=== PATIENT | male | born 1950 | race Caucasian/White ===

== ENCOUNTER 2017-12-12 17:56 | Inpatient (IN) | payer MEDICARE ==
[~2017-12-12] VITALS: Ht 182.9 cm; Wt 120.6 kg
[~2017-12-12 17:56] MED LIST: PERC5TAB12 PO
[2017-12-12 18:04] VITALS: BP 135/69; PULSE 69; RESP 16; TEMP 98; O2SAT 90
--- NOTE | 2017-12-12 18:24 | PD ---
HPI Chief Complaint: General Weakness Time Seen by Provider: 18:06 Travel History International Travel<30 days: No Contact w/Intl Traveler<30days: No Traveled to known affect area: No History of Present Illness HPI 67yo M with PMH of DM, CAD, right BKA, left transmetatarsal amputation, spinal osteomyelitis here with c/o progressively worsening weakness in all extremities but more in bilateral lower extremity. Pt said he normally is able to transfer himself but get even get out of bed for 3-4 days. Pt lives with his ex and takes care of himself. He usually is able to transfer himself to wheelchair and shower by himself and take a few steps with his prosthetic. Denies any fever, chest pain, sob, n/v, abdominal pain, focal numbness that is new. Denies any back pain or fall. PFSH Past Medical History Hx Anticoagulant Therapy: Yes (STOPPED 6 WEEKS AGO) Diabetes: Yes Immunizations Current: Yes Social History Alcohol Use: No Tobacco Use: No Substance Use: No Allergies-Medications (Allergen,Severity, Reaction): Coded Allergies: No Known Allergies (Unverified Adverse Reaction, Unknown, 12/12/17) Reported Meds & Prescriptions Reported Meds & Active Scripts Active Reported Hydrochlorothiazide 25 Mg Tab 25 Mg PO DAILY Lasix (Furosemide) 20 Mg Tab 20 Mg PO DAILY Tamsulosin (Tamsulosin HCl) 0.4 Mg Cap 0.4 Mg HS Protonix (Pantoprazole Sodium) 40 Mg Tab 40 Mg PO DAILY Metoprolol Tartrate 25 Mg Tab 25 Mg PO BID Metformin (Metformin HCl) 1,000 Mg Tab 1,000 Mg PO BIDPC Crestor (Rosuvastatin Calcium) 40 Mg Tab 40 Mg PO DAILY Glipizide 10 Mg Tab 10 Mg PO BIDAC Take 30 minutes before a meal Gabapentin 300 Mg Cap 300 Mg PO BID Ergocalciferol 50,000 Unit Cap 50,000 Units PO Q7D Creon (Pancrelipase) 3,000-9,500-15,000 Units Cap 1 Cap PO BID Aspirin Children's (Aspirin) 81 Mg Chew 81 Mg CHEW DAILY Amlodipine (Amlodipine Besylate) 10 Mg Tab 10 Mg PO DAILY Review of Systems Except as stated in HPI: all other systems reviewed are Neg Physical Exam Narrative GENERAL: 67yo M not in distress. SKIN: Focused skin assessment warm/dry. HEAD: Atraumatic. Normocephalic. EYES: Pupils equal and round. No scleral icterus. No injection or drainage. ENT: No nasal bleeding or discharge. Mucous membranes pink and moist. NECK: Trachea midline. No JVD. CARDIOVASCULAR: Regular rate and rhythm. No murmur appreciated. RESPIRATORY: No accessory muscle use. Clear to auscultation. Breath sounds equal bilaterally. GASTROINTESTINAL: Abdomen soft, non-tender, nondistended. Hepatic and splenic margins not palpable. BACK: No midline thoracic or lumbar ttp. No erythema or mass. MUSCULOSKELETAL: LLE: +Transmetatarsal amputation. Multiple nonhealing ulcers in medial ankle. RLE: +BKA. No erythema. NEUROLOGICAL: Awake and alert. No obvious cranial nerve deficits. Motor grossly within normal limits in all extremities. Sensation intact. Normal speech. PSYCHIATRIC: Appropriate mood and affect; insight and judgment normal. Data Data Last Documented VS Vital Signs Date Time Temp Pulse Resp B/P (MAP) Pulse Ox O2 Delivery O2 Flow Rate FiO2 12/12/17 19:21 68 16 139/66 (90) 94 Room Air 12/12/17 18:04 98.0 Orders Orders Complete Blood Count With Diff (12/12/17 18:21) Basic Metabolic Panel (Bmp) (12/12/17 18:21) Magnesium (Mg) (12/12/17 18:21) Urinalysis - C+S If Indicated (12/12/17 18:21) Urine Culture (12/12/17 19:21) Ceftriaxone Inj (Rocephin Inj) (12/12/17 20:00) Sodium Chlor 0.9% 1000 Ml Inj (Ns 1000 M (12/12/17 20:00) Admit Order (Ed Use Only) (12/12/17 20:31) Bedside Glucose OLVIN.CSUGAR (12/12/17 20:29) Blood Glucose Goal (Criteria) (12/12/17 20:29) Hypoglycemia 70 Mg/Dl Or < (12/12/17 20:29) Notify Dr: Other (12/12/17 20:29) Dextrose 50% In Brianna (Vial) Inj (D50w (Vi (12/12/17 20:30) Glucagon Inj (Glucagon Inj) (12/12/17 20:30) Insulin Aspart Supplemtl Scale (Novolog (12/12/17 21:00) Ceftriaxone Inj (Rocephin Inj) (12/13/17 21:00) Place In Observation (12/12/17 ) Vital Signs (Adult) Q4H (12/12/17 20:29) Activity Oob With Assistance (12/12/17 20:29) Intake + Output OLVIN.QSHIFT (12/12/17 20:29) Diet 1800 Ada Cons Carb (12/13/17 Breakfast) Sodium Chlor 0.9% 1000 Ml Inj (Ns 1000 M (12/12/17 20:29) Sodium Chloride 0.9% Flush (Ns Flush) (12/12/17 20:30) Sodium Chloride 0.9% Flush (Ns Flush) (12/12/17 21:00) Ondansetron Inj (Zofran Inj) (12/12/17 20:30) Comprehensive Metabolic Panel (12/13/17 06:00) Complete Blood Count With Diff (12/13/17 06:00) Case Management Consult (12/12/17 20:29) Heparin Inj (Heparin Inj) (12/13/17 09:00) Acetaminophen (Tylenol) (12/12/17 20:30) Acetamin-Hydrocod 325-5 Mg ([place] 5-325 (12/12/17 20:30) Acetamin-Hydrocod 325-10 Mg ([place] 10-32 (12/12/17 20:30) Docusate Sodium-Senna (Yen-Colace) (12/12/17 21:00) Magnesium Hydroxide Liq (Milk Of Magnesi (12/12/17 20:30) Sennosides (Senokot) (12/12/17 20:30) Bisacodyl Supp (Dulcolax Supp) (12/12/17 20:30) Lactulose Liq (Lactulose Liq) (12/12/17 20:30) Amlodipine (Norvasc) (12/13/17 09:00) Aspirin Chew (Aspirin Chew) (12/13/17 09:00) Furosemide (Lasix) (12/13/17 09:00) Gabapentin (Neurontin) (12/12/17 21:00) Glipizide (Glucotrol) (12/13/17 07:00) Metoprolol Tartrate (Lopressor) (12/12/17 21:00) Pantoprazole (Protonix) (12/13/17 09:00) Tamsulosin (Flomax) (12/12/17 21:00) Atorvastatin (Lipitor) (12/13/17 09:00) Labs Laboratory Tests Test 12/12/17 19:12 12/12/17 19:21 White Blood Count 11.9 TH/MM3 Red Blood Count 4.06 MIL/MM3 Hemoglobin 11.7 GM/DL Hematocrit 35.2 % Mean Corpuscular Volume 86.7 FL Mean Corpuscular Hemoglobin 28.8 PG Mean Corpuscular Hemoglobin Concent 33.2 % Red Cell Distribution Width 14.0 % Platelet Count 239 TH/MM3 Mean Platelet Volume 7.5 FL Neutrophils (%) (Auto) 72.5 % Lymphocytes (%) (Auto) 15.5 % Monocytes (%) (Auto) 8.6 % Eosinophils (%) (Auto) 2.8 % Basophils (%) (Auto) 0.6 % Neutrophils # (Auto) 8.7 TH/MM3 Lymphocytes # (Auto) 1.8 TH/MM3 Monocytes # (Auto) 1.0 TH/MM3 Eosinophils # (Auto) 0.3 TH/MM3 Basophils # (Auto) 0.1 TH/MM3 CBC Comment DIFF FINAL Differential Comment Blood Urea Nitrogen 57 MG/DL Creatinine 2.60 MG/DL Random Glucose 168 MG/DL Calcium Level 9.3 MG/DL Magnesium Level 2.2 MG/DL Sodium Level 136 MEQ/L Potassium Level 3.5 MEQ/L Chloride Level 98 MEQ/L Carbon Dioxide Level 27.5 MEQ/L Anion Gap 11 MEQ/L Estimat Glomerular Filtration Rate 25 ML/MIN Urine Collection Type CLEAN CATCH Urine Color YELLOW Urine Turbidity CLOUDY Urine pH 5.5 Urine Specific [place] 1.025 Urine Protein 100 mg/dL Urine Glucose (UA) 100 mg/dL Urine Ketones NEG mg/dL Urine Occult Blood LARGE Urine Nitrite NEG Urine Bilirubin NEG Urine Urobilinogen 0.2 MG/DL Urine Leukocyte Esterase NEG Urine RBC 0-3 /hpf Urine WBC 9-14 /hpf Urine Squamous Epithelial Cells 0-5 /hpf Urine Amorphous Sediment SMALL Urine Bacteria MANY /hpf Urine Hyaline Casts 3-5 /lpf Urine Fine Granular Casts 0-2 /lpf Urine Mucus OCC /lpf Microscopic Urinalysis Comment CULTURE INDICATED MDM Medical Decision Making Medical Screen Exam Complete: Yes Emergency Medical Condition: Yes Differential Diagnosis Infection vs. failure to thrive vs. dehydration vs. UTI Narrative Course 67yo M with c/o inability to transfer himself to wheelchair for the last 3-4 days because of progressive weakness in bilateral lower extremity. Pt able to lift bilateral lower extremity on exam but said he cant get out of bed. Labs reviewed, WBC 11.9. BUN/creatinine elevated at 57/2.6. Last BUN/creatinine available was 29/1.55 in 2016. Pt said he was told that he needs to see a kidney specialist but never did. Glucose 168. UA showed large blood. WBC 9/ 14. Many bacteria. +Hyaline casts. Pt given ceftriaxone and NS IVF for UTI and dehydration. Pt is unable to take care of himself. Discussed with Dr. Mejias and accepted to her service. Diagnosis Primary Impression: UTI (urinary tract infection) Qualified Codes: N39.0 - Urinary tract infection, site not specified; R31.9 - Hematuria, unspecified Additional Impression: Acute on chronic kidney failure Admitting Information Admitting Physician Requests: Observation Erika Kennedy DO Dec 12, 2017 18:24
[2017-12-12] MEDS ORDERED: AMLO10TA2 PO (18:35)
[2017-12-12] MEDS ORDERED: METF1000 PO (18:35)
[2017-12-12] MEDS ORDERED: FURO1TAB62 PO (18:35)
[2017-12-12] MEDS ORDERED: PROT40TA PO (18:35)
[2017-12-12] MEDS ORDERED: GLIP10TA6 PO (18:35)
[2017-12-12] MEDS ORDERED: METO25TA3 PO (18:35)
[2017-12-12] MEDS ORDERED: HYDR25TA5 PO (18:35)
[2017-12-12] MEDS ORDERED: ASPI81CH7 CHEW (18:35)
[2017-12-12] MEDS ORDERED: VITA500012 PO (18:35)
[2017-12-12] MEDS ORDERED: TAMS0.4C4 (18:35)
[2017-12-12] MEDS ORDERED: CREO3000 PO (18:35)
[2017-12-12] MEDS ORDERED: GABA300C5 PO (18:35)
[2017-12-12] MEDS ORDERED: ROSU40 PO (18:35)
[2017-12-12 19:21] VITALS: BP 139/66; PULSE 68; RESP 16; O2SAT 94
[2017-12-12 19:27] LABS: BILIRUBIN, URINE NEG (NEG); BLOOD, URINE LARGE (NEG); GLUCOSE,URINE 100 mg/dL (NEG); KETONE, URINE NEG (NEG); NITRITE,URINE NEG (NEG); PH, URINE 5.5 (5.0-8.5); URINE COLOR YELLOW (YELLW/STRAW); URINE LEUKOCYTE ESTERASE NEG (NEG)
[2017-12-12 19:28] LABS: AUTOMATED NEUTROPHIL # 8.7 TH/MM3 (1.8-7.7); BASOPHIL # 0.1 TH/MM3 (0-0.2); BASOPHIL % 0.6 % (0.0-2.0); EOSINOPHIL # 0.3 TH/MM3 (0-0.4); EOSINOPHIL % 2.8 % (0.0-4.0); HEMATOCRIT 35.2 % (39.0-51.0); HEMOGLOBIN 11.7 GM/DL (13.0-17.0); LYMPH % 15.5 % (9.0-44.0); LYMPHOCYTE # 1.8 TH/MM3 (1.0-4.8); MEAN CELL VOLUME 86.7 FL (80.0-100.0); MEAN CORPUSCULAR HEMOGLOBIN 28.8 PG (27.0-34.0); MEAN CORPUSCULAR HGB CONC 33.2 % (32.0-36.0); MEAN PLATELET VOLUME 7.5 FL (7.0-11.0); MONO % 8.6 % (0.0-8.0); NEUT % 72.5 % (16.0-70.0); PLATELET COUNT 239 TH/MM3 (150-450); RED BLOOD COUNT 4.06 MIL/MM3 (4.50-5.90); WHITE BLOOD COUNT 11.9 TH/MM3 (4.0-11.0)
[2017-12-12 19:41] LABS: BACTERIA, URINE MANY /hpf; SQUAMOUS EPITHELIAL CELL URINE 0-5 /hpf (0-5)
[2017-12-12 19:42] LABS: MUCUS URINE OCC /lpf (OCC)
[2017-12-12 19:42] LABS: BICARBONATE 27.5 MEQ/L (21.0-32.0); CALCIUM 9.3 MG/DL (8.5-10.1); MAGNESIUM 2.2 MG/DL (1.5-2.5)
[2017-12-12 19:43] LABS: AMORPHOUS SEDIMENT, URINE SMALL; RBC, URINE 0-3 /hpf (0-3)
[2017-12-12 19:46] LABS: CREATININE 2.6 MG/DL (0.60-1.30)
[2017-12-12] MEDS ORDERED: SODIUM CHLOR 0.9% 1000 ML INJ 1,000 ML IV ONE (20:00)
[2017-12-12] MEDS ORDERED: cefTRIAXone INJ 1,000 MG in SODIUM CHLORIDE 0.9% INJ 100 ML IV ONE (20:00)
[2017-12-12] MEDS ORDERED: SODIUM CHLOR 0.9% 1000 ML INJ 1,000 ML IV SCH (20:29)
[2017-12-12] MEDS ORDERED: BISACODYL 10 MG SUPP RECTAL PRN (20:30)
[2017-12-12] MEDS ORDERED: ACETAMINOPHEN/HYDROcodone 325 MG/10 MG TAB PO PRN (20:30)
[2017-12-12] MEDS ORDERED: ONDANSETRON HCL 4 MG/2 ML VIAL IVP PRN (20:30)
[2017-12-12] MEDS ORDERED: LACTULOSE SYRUP 20 GM/30 ML CUP PO PRN (20:30)
[2017-12-12] MEDS ORDERED: GLUCAGON 1 MG/ML VIAL OTHER PRN (20:30)
[2017-12-12] MEDS ORDERED: ACETAMINOPHEN/HYDROcodone 325 MG/5 MG TAB PO PRN (20:30)
[2017-12-12] MEDS ORDERED: SODIUM CHLORIDE 0.9% FLUSH 10 ML FLUSH IV FLUSH PRN (20:30)
[2017-12-12] MEDS ORDERED: MAGNESIUM HYDROXIDE SUSP 30 ML CUP PO PRN (20:30)
[2017-12-12] MEDS ORDERED: DEXTROSE 50% IN WATER 50 ML VIAL(D50) IV PUSH PRN (20:30)
[2017-12-12] MEDS ORDERED: SENNOSIDES 8.6 MG TAB PO PRN (20:30)
[2017-12-12] MEDS: INSULIN ASPART SUPPLEMENTAL SCALE SQ SCH (21:00)
[2017-12-12 21:25] VITALS: BP 107/64
[2017-12-12 22:14] VITALS: BP 148/78; PULSE 69; RESP 18; TEMP 97.6; O2SAT 94
[2017-12-12] MEDS: SODIUM CHLORIDE 0.9% FLUSH 10 ML FLUSH IV FLUSH SCH (22:16)
[2017-12-12] MEDS: METOPROLOL TARTRATE 25 MG TAB PO SCH (22:16)
[2017-12-12] MEDS: DOCUSATE SODIUM 50 MG/SENNA 8.6 MG TAB PO SCH (22:16)
[2017-12-12] MEDS: GABAPENTIN 300 MG CAP PO SCH (22:16)
[2017-12-12] MEDS: TAMSULOSIN HCL 0.4 MG CAP PO SCH (22:22)
[2017-12-13 04:39] VITALS: O2SAT 97
[2017-12-13 06:15] LABS: AUTOMATED NEUTROPHIL # 8.1 TH/MM3 (1.8-7.7); BASOPHIL % 0.4 % (0.0-2.0); EOSINOPHIL # 0.4 TH/MM3 (0-0.4); EOSINOPHIL % 3.3 % (0.0-4.0); HEMATOCRIT 32.5 % (39.0-51.0); HEMOGLOBIN 11.2 GM/DL (13.0-17.0); LYMPH % 19.5 % (9.0-44.0); LYMPHOCYTE # 2.3 TH/MM3 (1.0-4.8); MEAN CELL VOLUME 86.6 FL (80.0-100.0); MEAN CORPUSCULAR HEMOGLOBIN 29.7 PG (27.0-34.0); MEAN CORPUSCULAR HGB CONC 34.3 % (32.0-36.0); MEAN PLATELET VOLUME 7.3 FL (7.0-11.0); MONO % 7.6 % (0.0-8.0); MONOCYTE # 0.9 TH/MM3 (0-0.9); NEUT % 69.2 % (16.0-70.0); PLATELET COUNT 221 TH/MM3 (150-450); RED BLOOD COUNT 3.76 MIL/MM3 (4.50-5.90); RED CELL DISTRIBUTION WIDTH 14.7 % (11.6-17.2); WHITE BLOOD COUNT 11.7 TH/MM3 (4.0-11.0)
[2017-12-13 06:24] LABS: CHLORIDE 103 MEQ/L (98-107); SODIUM (NA) 141 MEQ/L (136-145)
[2017-12-13 06:29] LABS: ALBUMIN 2.6 GM/DL (3.4-5.0); CALCIUM 8.7 MG/DL (8.5-10.1); GLUCOSE,RANDOM 85 MG/DL (74-106)
[2017-12-13 06:30] LABS: BICARBONATE 26.6 MEQ/L (21.0-32.0); BLOOD UREA NITROGEN 51 MG/DL (7-18)
[2017-12-13 06:32] LABS: ALT (GPT) 53 U/L (12-78); AST (GOT) 89 U/L (15-37); GLOMERULAR FILTRATION RATE 28 ML/MIN (>89)
[2017-12-13 06:34] LABS: TOTAL BILIRUBIN ADULT 0.5 MG/DL (0.2-1.0); TOTAL PROTEIN 6.4 GM/DL (6.4-8.2)
[2017-12-13 06:35] LABS: ALKALINE PHOSPHATASE 76 U/L (45-117)
[2017-12-13] MEDS ORDERED: glipiZIDE 10 MG TAB PO SCH (07:00)
[2017-12-13 07:50] VITALS: BP 127/68; PULSE 72; RESP 20; TEMP 98.3; O2SAT 93
[2017-12-13] MEDS: INSULIN ASPART SUPPLEMENTAL SCALE SQ SCH ×4 (08:00→21:59)
[2017-12-13] MEDS: HEPARIN SODIUM - SQ 10,000 UNITS/ML VIAL SQ SCH ×2 (08:39→08:49)
[2017-12-13] MEDS: DOCUSATE SODIUM 50 MG/SENNA 8.6 MG TAB PO SCH ×2 (08:40→21:47)
[2017-12-13] MEDS: FUROSEMIDE 20 MG TAB PO SCH (08:40)
[2017-12-13] MEDS: METOPROLOL TARTRATE 25 MG TAB PO SCH ×2 (08:40→21:59)
[2017-12-13] MEDS: GABAPENTIN 300 MG CAP PO SCH ×2 (08:40→21:47)
[2017-12-13] MEDS: PANTOPRAZOLE SOD 40 MG DELAYED RELEASE TAB PO SCH (08:40)
[2017-12-13] MEDS: ATORVASTATIN 40 MG TAB PO SCH (08:40)
[2017-12-13] MEDS: ASPIRIN 81 MG CHEW TAB CHEW SCH (08:41)
[2017-12-13] MEDS: LIPASE/PROTEASE/AMYLASE (6,000/19,000/30,000) CAP PO SCH ×2 (08:43→21:47)
--- NOTE | 2017-12-13 08:59 | HHI.HP ---
[facility] Zackary Chapa MD Admission Diagnosis UTI, Acute on chronic kidney failure Diagnoses: (1) UTI (urinary tract infection) Diagnosis: Principal (2) Generalized weakness inability to stand Diagnosis: Principal (3) Acute on chronic kidney failure Diagnosis: Secondary Chief Complaint: Difficulty bearing weight when standing Travel History International Travel<30 Days: No Contact w/Intl Traveler <30 Da: No Traveled to Known Affected Are: No History of Present Illness Patient is a 67-year-old male with history of diabetes type 2, CAD status post CABG in 2002, right BKA, hypertension left TMA who gets around mainly with a power chair. He presented to the ER complaining of increasing weakness on both lower extremity that started 5 days ago. Individually patient states he moves all muscle group very well but however whenever he stands he feels that he cannot bear weight if even with holding onto the bars. "Cannot stand up". Otherwise patient denies any fever or chest pain shortness of breath. Patient has been voiding well however incidentally yesterday complained of some burning sensation during urination. Patient denies any back pain. Persistence prompted consult to ER and was admitted for evaluation. On review of medications, patient states that he was on Lipitor for hyperlipidemia -and has been on this for a long time and per patient was recently switched to Crestor. And wondering if this has anything to do with it. He checks his blood sugars regularly and ranges around 100-170. Patient states good hypoglycemic awareness Patient lives with his ex-. Review of Systems Constitutional: DENIES: Fever, Weight loss, Chills, Change in appetite Eyes: DENIES: Blurred vision, Double Vision Ears, nose, mouth, throat: DENIES: Tinnitus, Ear Pain, Epistaxis, Odynophagia Respiratory: DENIES: Cough, Hemoptysis, Sputum production, Shortness of breath Cardiovascular: DENIES: Chest pain, Palpitations, Dyspnea on Exertion, Lower Extremity Edema, Orthopnea Gastrointestinal: DENIES: Black stools, Bloody stools, Difficulty Swallowing, Anorexia Genitourinary: DENIES: Urgency, Hematuria, Penile Discharge Musculoskeletal: DENIES: Joint pain, Stiffness Integumentary: DENIES: Pruritus Hematologic/lymphatic: DENIES: Bruising Immunologic/allergic: DENIES: Urticaria Neurologic: DENIES: Headache, Speech Problems, Tremor Psychiatric: DENIES: Suicidal Ideation, Homicidal Ideation Past Family Social History Past Medical History Hypertension, CAD status post CABG Hyperlipidemia, diabetes type 2 History of's spine osteomyelitis in 2016 admitted at [facility] Chronic kidney disease Past Surgical History Status post CABG Right BKA Left TMA Reported Medications Crestor Lopressor Amlodipine Aspirin Gabapentin Hydrochlorothiazide Metformin Glipizide Vitamin D Allergies: Coded Allergies: No Known Allergies (Unverified Adverse Reaction, Unknown, 12/12/17) Family History Noncontributory Social History Non-smoker denies alcohol use Physical Exam Vital Signs Vital Signs Date Time Temp Pulse Resp B/P (MAP) Pulse Ox O2 Delivery O2 Flow Rate FiO2 12/13/17 04:39 97 12/12/17 22:14 97.6 69 18 148/78 (101) 94 12/12/17 21:25 68 16 107/64 (78) 95 12/12/17 19:21 68 16 139/66 (90) 94 Room Air 12/12/17 18:37 Room Air 12/12/17 18:04 98.0 69 16 135/69 (91) 90 Physical Exam GENERAL: Awake alert oriented 3 not in acute distress SKIN: No rashes, ecchymoses or lesions. Cool and dry. HEAD: Atraumatic. Normocephalic. No temporal or scalp tenderness. EYES: Pupils equal round and reactive. Extraocular motions intact. No scleral icterus. No injection or drainage. ENT: Nose without bleeding, Throat without erythema, tonsillar hypertrophy or exudate. Uvula midline. Airway patent. NECK: Trachea midline. No JVD or lymphadenopathy. Supple, nontender, no meningeal signs. CARDIOVASCULAR: Regular rate and rhythm without murmurs, gallops, or rubs. RESPIRATORY: Clear to auscultation. Breath sounds equal bilaterally. No wheezes , rales, or rhonchi. GASTROINTESTINAL: Abdomen soft, non-tender, nondistended. No guarding. MUSCULOSKELETAL: Right BKA stump well-healed Left TMA mild swelling Left lower extremity ling area with an open superficial wound with light serous yellowish discharge non-foul with surrounding mild cellulitis extremities without clubbing, cyanosis, or edema. No joint tenderness, effusion, or edema noted. No calf tenderness. Negative Homans sign bilaterally. NEUROLOGICAL: Awake and alert. Cranial nerves II through XII intact. Motor and sensory grossly within normal limits. Five out of 5 muscle strength in all muscle groups. Normal speech. Gait testing deferred Laboratory Laboratory Tests Test 12/12/17 19:12 12/12/17 19:21 12/13/17 05:42 White Blood Count 11.9 11.7 Red Blood Count 4.06 3.76 Hemoglobin 11.7 11.2 Hematocrit 35.2 32.5 Mean Corpuscular Volume 86.7 86.6 Mean Corpuscular Hemoglobin 28.8 29.7 Mean Corpuscular Hemoglobin Concent 33.2 34.3 Red Cell Distribution Width 14.0 14.7 Platelet Count 239 221 Mean Platelet Volume 7.5 7.3 Neutrophils (%) (Auto) 72.5 69.2 Lymphocytes (%) (Auto) 15.5 19.5 Monocytes (%) (Auto) 8.6 7.6 Eosinophils (%) (Auto) 2.8 3.3 Basophils (%) (Auto) 0.6 0.4 Neutrophils # (Auto) 8.7 8.1 Lymphocytes # (Auto) 1.8 2.3 Monocytes # (Auto) 1.0 0.9 Eosinophils # (Auto) 0.3 0.4 Basophils # (Auto) 0.1 0.0 CBC Comment DIFF FINAL DIFF FINAL Differential Comment Blood Urea Nitrogen 57 51 Creatinine 2.60 2.30 Random Glucose 168 85 Calcium Level 9.3 8.7 Magnesium Level 2.2 Sodium Level 136 141 Potassium Level 3.5 3.0 Chloride Level 98 103 Carbon Dioxide Level 27.5 26.6 Anion Gap 11 11 Estimat Glomerular Filtration Rate 25 28 Urine Collection Type CLEAN CATCH Urine Color YELLOW Urine Turbidity CLOUDY Urine pH 5.5 Urine Specific [place] 1.025 Urine Protein 100 Urine Glucose (UA) 100 Urine Ketones NEG Urine Occult Blood LARGE Urine Nitrite NEG Urine Bilirubin NEG Urine Urobilinogen 0.2 Urine Leukocyte Esterase NEG Urine RBC 0-3 Urine WBC 9-14 Urine Squamous Epithelial Cells 0-5 Urine Amorphous Sediment SMALL Urine Bacteria MANY Urine Hyaline Casts 3-5 Urine Fine Granular Casts 0-2 Urine Mucus OCC Microscopic Urinalysis Comment CULTURE INDICATED Total Protein 6.4 Albumin 2.6 Alkaline Phosphatase 76 Aspartate Amino Transf (AST/SGOT) 89 Alanine Aminotransferase (ALT/SGPT) 53 Total Bilirubin 0.5 Date/Time Source Procedure Growth Status 12/12/17 19:21 Urine Clean Catch Urine Culture Pending Received Result Diagram: 12/13/17 0542 12/13/17 0542 Capkatia VTE Risk Assessment Diogo VTE Risk Assessment: Mod/High Risk (score >= 2) VTE [facility] Contraindication: Bilateral amputee Capcedrici Risk Assessment Model Point Value = 1 Point Value = 2 Point Value = 3 Point Value = 5 Age 41-60 Minor surgery BMI > 25 kg/m2 Swollen legs Varicose veins or History of unexplained or recurrent spontaneous Oral contraceptives or hormone replacement Sepsis (< 1 month) Serious lung disease, including pneumonia (< 1 month) Abnormal pulmonary function Acute myocardial infarction Congestive heart failure (< 1 month) History of inflammatory bowel disease Medical patient at bed rest Age 61-74 Arthroscopic surgery Major open surgery (> 45 min) Laparoscopic surgery (> 45 min) Malignancy Confined to bed (> 72 hours) Immobilizing plaster cast Central venous access Age >= 75 History of VTE Family history of VTE Factor V Leiden Prothrombin [id number] Lupus anticoagulant Anticardiolipin antibodies Elevated serum homocysteine Heparin-induced thrombocytopenia Other congenital or acquired thrombophilia Stroke (< 1 month) Elective arthroplasty Hip, pelvis, or leg fracture Acute spinal cord injury (< 1 month) Prophylaxis Regimen Total Risk Factor Score Risk Level Prophylaxis Regimen 0-1 Low Early ambulation 2 Moderate Order ONE of the following: *Sequential Compression Device (SCD) *Heparin 5000 units SQ BID 3-4 Higher Order ONE of the following medications: *Heparin 5000 units SQ TID *Enoxaparin/Lovenox 40 mg SQ daily (WT < 150 kg, CrCl > 30 mL/min) *Enoxaparin/Lovenox 30 mg SQ daily (WT < 150 kg, CrCl > 10-29 mL/min) *Enoxaparin/Lovenox 30 mg SQ BID (WT < 150 kg, CrCl > 30 mL/min) AND/OR *Sequential Compression Device (SCD) 5 or more Highest Order ONE of the following medications: *Heparin 5000 units SQ TID (Preferred with Epidurals) *Enoxaparin/Lovenox 40 mg SQ daily (WT < 150 kg, CrCl > 30 mL/min) *Enoxaparin/Lovenox 30 mg SQ daily (WT < 150 kg, CrCl > 10-29 mL/min) *Enoxaparin/Lovenox 30 mg SQ BID (WT < 150 kg, CrCl > 30 mL/min) AND *Sequential Compression Device (SCD) Assessment and Plan Assessment and Plan 67-year-old male Inability to stand/weakness. diabetic neuropathy - PT OT consult - continue on Gabapentin -Individual muscle group test- strength is equal and strong Patient baseline gets around with a power chair Consult case management for DC planning Hypokalemia. Replace p.o. plus IV 1- may be contributing factor Acute kidney insufficiency likely with chronic renal disease stage III- last creatine from 2016- was 1.8 -Continue on IV fluids.70 cc/hr - Recheck BMP in a.m. Patient nonoliguric good urine output at bedside DC metformin with elevated creatinine UTI. Patient started on Rocephin. Follow final [employer] Left lower extremity mild cellulitis with chronic superficial wound- tibial surface - wound care team consult - on rocephin for above Diabetes type 2 patient states good hypoglycemic awareness -Check A1c- -Discontinue Metformin with elevated creatinine -Hold glipizide for now. Follow blood sugars with sliding scale for now -ADA diet History of CAD status post CABG Hypertension Hyperlipidemia - Continue on medications Lopressor, amlodipine, aspirin, hydrochlorothiazide, Furosemide. statins. - FF BMP Heparin subcu for DVT prophylaxis PT consult CM consult for DC planning- may benefit from SNF Problem Qualifiers (1) UTI (urinary tract infection): Qualified Codes: N39.0 - Urinary tract infection, site not specified; R31.9 - Hematuria, unspecified (2) Acute on chronic kidney failure: Juvenitno Rosales MD Dec 13, 2017 08:59
[2017-12-13] MEDS ORDERED: POTASSIUM CHLOR 10 MEQ PREMIX 100 ML IV ONE (09:00)
[2017-12-13] MEDS ORDERED: NS + KCL 20 MEQ INJ 1,000 ML IV SCH (09:00)
[2017-12-13] MEDS: SODIUM CHLORIDE 0.9% FLUSH 10 ML FLUSH IV FLUSH SCH ×2 (09:47→21:38)
[2017-12-13] MEDS ORDERED: POTASSIUM CHLORIDE 10 MEQ CONTROLLED RELEASE TAB PO ONE (10:00)
[2017-12-13 11:50] VITALS: BP 121/61; PULSE 65; RESP 20; TEMP 96.1; O2SAT 92
[2017-12-13] MEDS: POTASSIUM CHLORIDE INJ 10 MEQ in SODIUM CHLOR 0.9% 1000 ML INJ 1,000 ML IV SCH ×3 (15:00→23:27)
[2017-12-13 15:43] VITALS: BP 118/57; PULSE 64; RESP 20; TEMP 96.1; O2SAT 91
[2017-12-13 20:00] VITALS: BP 117/60; PULSE 63; RESP 20; TEMP 96.7; O2SAT 91
[2017-12-13] MEDS: cefTRIAXone INJ 1,000 MG in SODIUM CHLORIDE 0.9% INJ 100 ML IV SCH (21:38)
[2017-12-13] MEDS: TAMSULOSIN HCL 0.4 MG CAP PO SCH (21:47)
[2017-12-13] MEDS: ACETAMINOPHEN 325 MG TAB PO PRN (23:26)
[2017-12-14] VITALS: BP 121/58; PULSE 60; RESP 20; TEMP 96.9; O2SAT 92
[2017-12-14 06:21] LABS: CHLORIDE 107 MEQ/L (98-107); SODIUM (NA) 143 MEQ/L (136-145)
[2017-12-14 06:25] LABS: CALCIUM 8.6 MG/DL (8.5-10.1)
[2017-12-14 06:26] LABS: ALBUMIN 2.5 GM/DL (3.4-5.0); BICARBONATE 27.9 MEQ/L (21.0-32.0); BLOOD UREA NITROGEN 42 MG/DL (7-18); GLUCOSE,RANDOM 97 MG/DL (74-106)
[2017-12-14 06:29] LABS: ALT (GPT) 50 U/L (12-78); AST (GOT) 74 U/L (15-37); GLOMERULAR FILTRATION RATE 32 ML/MIN (>89)
[2017-12-14 06:30] LABS: TOTAL BILIRUBIN ADULT 0.5 MG/DL (0.2-1.0)
[2017-12-14 06:31] LABS: TOTAL PROTEIN 6.3 GM/DL (6.4-8.2)
[2017-12-14 06:32] LABS: ALKALINE PHOSPHATASE 78 U/L (45-117)
[2017-12-14 08:00] VITALS: BP 138/65; PULSE 58; RESP 18; TEMP 96.5; O2SAT 94
[2017-12-14] MEDS: INSULIN ASPART SUPPLEMENTAL SCALE SQ SCH ×4 (08:50→20:01)
[2017-12-14] MEDS: METOPROLOL TARTRATE 25 MG TAB PO SCH ×2 (08:52→20:00)
[2017-12-14] MEDS: ASPIRIN 81 MG CHEW TAB CHEW SCH (08:52)
[2017-12-14] MEDS: LIPASE/PROTEASE/AMYLASE (6,000/19,000/30,000) CAP PO SCH ×2 (08:53→20:00)
[2017-12-14] MEDS: DOCUSATE SODIUM 50 MG/SENNA 8.6 MG TAB PO SCH ×2 (08:53→20:00)
[2017-12-14] MEDS: PANTOPRAZOLE SOD 40 MG DELAYED RELEASE TAB PO SCH (08:53)
[2017-12-14] MEDS: GABAPENTIN 300 MG CAP PO SCH ×2 (08:53→20:01)
[2017-12-14] MEDS: ATORVASTATIN 40 MG TAB PO SCH (08:53)
[2017-12-14] MEDS: FUROSEMIDE 20 MG TAB PO SCH (08:53)
[2017-12-14] MEDS: SODIUM CHLORIDE 0.9% FLUSH 10 ML FLUSH IV FLUSH SCH ×2 (08:54→20:00)
[2017-12-14] MEDS: HEPARIN SODIUM - SQ 10,000 UNITS/ML VIAL SQ SCH ×2 (09:00→20:00)
--- NOTE | 2017-12-14 10:27 | HHI.PR ---
Subjective Remarks Follow-up weakness, UTI. Patient seen and examined, lying in bed sleeping. Awakens to voice. Denies any pain or chest pain. Does admit to some dysuria. Intake and output noted. Vital signs are stable overnight. Afebrile overnight. Urine culture growing Klebsiella and gram-negative abdoulaye. Wound culture pending. Labs noted today, K3.2. Creatinine 2.1. Wound care and to see patient, appreciate recommendations. Objective Vitals Vital Signs Date Time Temp Pulse Resp B/P (MAP) Pulse Ox O2 Delivery O2 Flow Rate FiO2 12/14/17 08:00 96.5 58 18 138/65 (89) 94 12/14/17 00:00 96.9 60 20 121/58 (79) 92 12/13/17 20:00 96.7 63 20 117/60 (79) 91 12/13/17 15:43 96.1 64 20 118/57 (77) 91 12/13/17 11:50 96.1 65 20 121/61 (81) 92 I/O 12/13/17 12/13/17 12/13/17 12/14/17 12/14/17 12/14/17 07:00 15:00 23:00 07:00 15:00 23:00 Intake Total 719 ml 385 ml 1930 ml 1302 ml Output Total 1050 ml 600 ml 1050 ml Balance -331 ml 385 ml 1330 ml 252 ml Intake Oral 330 ml 520 ml IV Total 719 ml 385 ml 1600 ml 782 ml Output Urine Total 1050 ml 600 ml 1050 ml # Voids 3 # Bowel Movements 0 0 Result Diagram: 12/13/17 0542 12/14/17 0530 Objective Remarks GENERAL: Awake alert oriented 3 not in acute distress SKIN: No rashes, ecchymoses or lesions. HEAD: Atraumatic. Normocephalic. EYES: Pupils equal round and reactive. Extraocular motions intact. No scleral icterus. No injection or drainage. ENT: Nose without bleeding. Uvula midline. Airway patent. NECK: Trachea midline. No JVD or lymphadenopathy. Supple CARDIOVASCULAR: Regular rate and rhythm without murmurs, gallops, or rubs. RESPIRATORY: Clear to auscultation. Breath sounds equal bilaterally. No wheezes , rales, or rhonchi. GASTROINTESTINAL: Abdomen soft, non-tender, nondistended. No guarding. MUSCULOSKELETAL: Right BKA stump well-healed. Left TMA mild swelling. Left lower extremity ling area with an open superficial wound with light serous yellowish discharge non-foul with surrounding mild cellulitis extremities without clubbing, cyanosis, or edema. No joint tenderness, effusion, or edema noted. No calf tenderness. Negative Homans sign bilaterally. Dressing in place. NEUROLOGICAL: Awake and alert. Cranial nerves II through XII intact. Motor and sensory grossly within normal limits. Five out of 5 muscle strength in all muscle groups. Normal speech. A/P Problem List: (1) UTI (urinary tract infection) ICD Code: N39.0 - Urinary tract infection, site not specified Status: Acute (2) Generalized weakness inability to stand (3) Acute on chronic kidney failure ICD Code: N17.9 - Acute kidney failure, unspecified; N18.9 - Chronic kidney disease, unspecified Status: Acute Assessment and Plan 67-year-old male Inability to stand/weakness diabetic neuropathy - PT OT consult, appreciate input recommendations. Patient's baseline gets around with a power chair. Case management assisting with discharge planning to SNF. - continue on Gabapentin - Individual muscle group test- strength is equal and strong Hypokalemia. K3.2 today. Status post replacement. Continue IV fluid with potassium supplementation. Monitor BMP. Acute kidney insufficiency likely with chronic renal disease stage III- last creatine from 2016- was 1.8 - Continue on IV fluids. Follow BMP. - Patient nonoliguric good urine output at bedside - DC metformin with elevated creatinine. Avoid nephrotoxins. UTI. With presence of Klebsiella and gram-negative abdoulaye. Patient started on Rocephin. Continue. Left lower extremity mild cellulitis with chronic superficial wound - tibial surface - wound care team consulted, see order for wound care recommendations and management. - on Rocephin for above Diabetes type 2 patient states good hypoglycemic awareness - Check A1c, pending. - Discontinue Metformin with elevated creatinine - Hold glipizide for now. Follow blood sugars with sliding scale for now, cover as needed. - ADA diet History of CAD status post CABG Hypertension Hyperlipidemia - Continue on medications Lopressor, amlodipine, aspirin, hydrochlorothiazide, Furosemide. statins. - FF BMP Heparin subcu for DVT prophylaxis PT consult CM consult for DC planning - may benefit from SNF Discharge Planning Patient needs a minimum of 3 night stay, will discharge to SNF on 12/16. Problem Qualifiers (1) UTI (urinary tract infection): Qualified Codes: N39.0 - Urinary tract infection, site not specified; R31.9 - Hematuria, unspecified (2) Acute on chronic kidney failure: Cortney Hollis Dec 14, 2017 10:27
--- NOTE | 2017-12-14 11:44 | PD.WCN.NOT ---
Wound Consult Description: Received wound care consult from Doctor Rosales for wound to ling Communicated with: HAI Troncoso and Cortney Hollis [facility] Recommendation: L medial ankle: 1. Please cleanse wound with normal saline only and pat dry. 2. Apply frankie thick coverage of Santyl ointment with 2x2 gauze pad just over wound bed and not on intact skin 3. Cover with dry 4x4 gauze pads 4. Secure dressing with rolled gauze and tape. 5. Change dressing daily L lign, and L upper mid ling 1. Cleanse wounds with normal saline and pat dry. 2. Apply oil emulsion gauze just over wound beds and not intact skin 3. Cover with dry 4x4 gauze pads. 4. Secure dressing with ABD pad, rolled gauze and tape. 5. Change dressing every 2 days or PRN if saturated or dislodged L knee and L proximal ling skin tears 1. Cleanse wound with normal saline and pat dry. 2.Apply Versatel one over open skin tears 3. Cover with dry 4x4 gauze pad 4. Secure dressing with rolled gauze and tape. Leave versatel in place for 5 days, may change gauze and rolled gauze securing dressing as needed. R inner buttock 1. Please cleanse buttock wound with normal saline and pat dry 2. 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 Sprayed bulla with Cavilon skin barrier film (skin prep). Removed bordered gauze dressings in place to L ling to reveal open wounds to L medial ankle, L ling, and L upper mid ling. Wounds were cleansed with normal saline and patted dry. L medial ankle measures ~1.5cm x ~3.3cm x slough. Wound presents with ~40% dry adherent yellow slough, ~40% adipose tissue, ~20% pink tissue. Wound bed is dry without active drainage or odor. Wound has an oval shape with well defined wound margins. Wound to L ling presents with ~50% adipose and ~50% pink tissue. Wound drainage is scant and sero-sanguinous without odor. Periwound is noted with slight maceration, but otherwise unremarkable. Wound measures ~4cm x ~3cm x ~0.1cm. Wound to mid upper ling presents with 70% pink tissue and ~30% adipose tissue. Wound measures ~ 2cm x ~1cm x ~<0.1cm. Wound drainage is scant and sero- sanguinous without odor. Cleansed all wounds with normal saline and patted dry. Applied oil emulsion gauze just over open wound bed and covered with dry 4x4 gauze pad to L medial ankle, and covered L ling wounds with ABd pad. Secured dressings with rolled gauze and tape. Removed adhesive bandages in place to L knee and L upper ling to reveal partial thickness skin tears. Skin tears were cleansed with normal saline and patted dry. Applied Versatel one to open wounds and covered with dry 4x4 gauze pads, rolled gauze and tape. Patient was then positioned to R side and removed adhesive foam dressing to reveal small chronic wound to R medial buttock that is partial thickness. Cleansed wound with normal saline and patted dry. Applied Calazime skin protectant paste over wound and to buttock area and left open to air. Alma Caal [facility] Dec 14, 2017 11:44
[2017-12-14 12:00] VITALS: BP 148/66; PULSE 61; RESP 18; TEMP 96.2; O2SAT 93
[2017-12-14] MEDS: ACETAMINOPHEN 325 MG TAB PO PRN ×2 (12:03→23:38)
[2017-12-14] MEDS: POTASSIUM CHLORIDE INJ 10 MEQ in SODIUM CHLOR 0.9% 1000 ML INJ 1,000 ML IV SCH (12:52)
[2017-12-14 16:00] VITALS: BP 131/63; PULSE 64; RESP 18; TEMP 97; O2SAT 93
[2017-12-14 16:05] LABS: HEMOGLOBIN A1C 8.8 % (4.3-6.0)
[2017-12-14] MEDS: cefTRIAXone INJ 1,000 MG in SODIUM CHLORIDE 0.9% INJ 100 ML IV SCH (19:59)
[2017-12-14 20:00] VITALS: BP 136/65; PULSE 60; RESP 22; TEMP 96.8; O2SAT 92
[2017-12-14] MEDS: TAMSULOSIN HCL 0.4 MG CAP PO SCH (20:00)
[2017-12-15] VITALS: BP 139/67; PULSE 59; RESP 18; TEMP 96.1; O2SAT 94
[2017-12-15] MEDS: POTASSIUM CHLORIDE INJ 10 MEQ in SODIUM CHLOR 0.9% 1000 ML INJ 1,000 ML IV SCH ×2 (03:48→16:47)
[2017-12-15 06:28] LABS: AUTOMATED NEUTROPHIL # 5.4 TH/MM3 (1.8-7.7); BASOPHIL % 0.4 % (0.0-2.0); EOSINOPHIL # 0.5 TH/MM3 (0-0.4); EOSINOPHIL % 5.6 % (0.0-4.0); HEMATOCRIT 33.4 % (39.0-51.0); HEMOGLOBIN 10.9 GM/DL (13.0-17.0); LYMPH % 21.9 % (9.0-44.0); LYMPHOCYTE # 1.9 TH/MM3 (1.0-4.8); MEAN CELL VOLUME 87.3 FL (80.0-100.0); MEAN CORPUSCULAR HEMOGLOBIN 28.4 PG (27.0-34.0); MEAN CORPUSCULAR HGB CONC 32.6 % (32.0-36.0); MEAN PLATELET VOLUME 7.2 FL (7.0-11.0); MONO % 9.1 % (0.0-8.0); MONOCYTE # 0.8 TH/MM3 (0-0.9); PLATELET COUNT 219 TH/MM3 (150-450); RED BLOOD COUNT 3.83 MIL/MM3 (4.50-5.90); RED CELL DISTRIBUTION WIDTH 14.3 % (11.6-17.2); WHITE BLOOD COUNT 8.6 TH/MM3 (4.0-11.0)
[2017-12-15 06:48] LABS: CALCIUM 8.4 MG/DL (8.5-10.1)
[2017-12-15 06:49] LABS: BICARBONATE 30.1 MEQ/L (21.0-32.0)
[2017-12-15 06:52] LABS: CREATININE 1.9 MG/DL (0.60-1.30)
[2017-12-15] MEDS: INSULIN ASPART SUPPLEMENTAL SCALE SQ SCH ×4 (07:23→21:00)
[2017-12-15 08:00] VITALS: BP 139/67; PULSE 61; RESP 19; TEMP 97.6; O2SAT 94
[2017-12-15] MEDS: SODIUM CHLORIDE 0.9% FLUSH 10 ML FLUSH IV FLUSH SCH ×2 (09:00→21:00)
[2017-12-15] MEDS: HEPARIN SODIUM - SQ 10,000 UNITS/ML VIAL SQ SCH ×2 (09:00→21:00)
[2017-12-15] MEDS: METOPROLOL TARTRATE 25 MG TAB PO SCH ×2 (09:56→21:28)
[2017-12-15] MEDS: ASPIRIN 81 MG CHEW TAB CHEW SCH (09:56)
[2017-12-15] MEDS: DOCUSATE SODIUM 50 MG/SENNA 8.6 MG TAB PO SCH ×2 (09:56→21:28)
[2017-12-15] MEDS: FUROSEMIDE 20 MG TAB PO SCH (09:57)
[2017-12-15] MEDS: PANTOPRAZOLE SOD 40 MG DELAYED RELEASE TAB PO SCH (09:57)
[2017-12-15] MEDS: LIPASE/PROTEASE/AMYLASE (6,000/19,000/30,000) CAP PO SCH ×2 (09:59→21:28)
[2017-12-15] MEDS: ATORVASTATIN 40 MG TAB PO SCH (09:59)
[2017-12-15] MEDS: GABAPENTIN 300 MG CAP PO SCH ×2 (10:00→21:28)
[2017-12-15] MEDS: COLLAGENASE OINT 30 GM TUBE TOPICAL SCH (10:08)
[2017-12-15 11:42] VITALS: BP 166/78; PULSE 65; RESP 19; TEMP 96.9; O2SAT 95
--- NOTE | 2017-12-15 12:57 | HHI.PR ---
Subjective Remarks Follow-up weakness, UTI. Patient seen and examined, patient lying in bed comfortably in no apparent distress. Still no bowel movement over a week, patient states his baseline is roughly 1 bowel movement per week. Eating well no nausea or vomiting no abdominal pain. Patient's hemoglobin A1c 8.8. Metformin has been discontinued due to chronic kidney disease. Patient may need insulin therapy at home. ground water technician consulted, appreciate input recommendations. Objective Vitals Vital Signs Date Time Temp Pulse Resp B/P (MAP) Pulse Ox O2 Delivery O2 Flow Rate FiO2 12/15/17 11:42 96.9 65 19 166/78 (107) 95 12/15/17 08:00 97.6 61 19 139/67 (91) 94 12/15/17 00:00 96.1 59 18 139/67 (91) 94 12/14/17 20:00 96.8 60 22 136/65 (88) 92 12/14/17 16:00 97.0 64 18 131/63 (85) 93 I/O 12/14/17 12/14/17 12/14/17 12/15/17 12/15/17 12/15/17 06:59 14:59 22:59 06:59 14:59 22:59 Intake Total 1302 ml 323 ml 700 ml 1062 ml Output Total 1050 ml 1900 ml 700 ml Balance 252 ml 323 ml -1200 ml 362 ml Intake Oral 520 ml 600 ml 240 ml IV Total 782 ml 323 ml 100 ml 822 ml Output Urine Total 1050 ml 1900 ml 700 ml # Voids 2 # Bowel Movements 0 Result Diagram: 12/15/17 0549 12/15/17 0549 Objective Remarks GENERAL: Awake alert oriented 3 not in acute distress SKIN: No rashes, ecchymoses or lesions. HEAD: Atraumatic. Normocephalic. EYES: Pupils equal round and reactive. Extraocular motions intact. No scleral icterus. No injection or drainage. ENT: Nose without bleeding. Uvula midline. Airway patent. NECK: Trachea midline. No JVD or lymphadenopathy. Supple CARDIOVASCULAR: Regular rate and rhythm without murmurs, gallops, or rubs. RESPIRATORY: Clear to auscultation. Breath sounds equal bilaterally. No wheezes , rales, or rhonchi. GASTROINTESTINAL: Abdomen soft, non-tender, nondistended. No guarding. MUSCULOSKELETAL: Right BKA stump well-healed. Left TMA mild swelling. Left lower extremity ling area with an open superficial wound with light serous yellowish discharge non-foul with surrounding mild cellulitis extremities without clubbing, cyanosis, or edema. No joint tenderness, effusion, or edema noted. No calf tenderness. Negative Homans sign bilaterally. Dressing in place. NEUROLOGICAL: Awake and alert. Cranial nerves II through XII intact. Motor and sensory grossly within normal limits. Five out of 5 muscle strength in all muscle groups. Normal speech. A/P Problem List: (1) UTI (urinary tract infection) ICD Code: N39.0 - Urinary tract infection, site not specified Status: Acute (2) Generalized weakness inability to stand (3) Acute on chronic kidney failure ICD Code: N17.9 - Acute kidney failure, unspecified; N18.9 - Chronic kidney disease, unspecified Status: Acute Assessment and Plan 67-year-old male Inability to stand/weakness diabetic neuropathy - PT OT consult, appreciate input recommendations. Patient's baseline gets around with a power chair. Case management assisting with discharge planning to SNF. - continue on Gabapentin - Individual muscle group test- strength is equal and strong Hypokalemia. K3.2 today. Status post replacement. Continue IV fluid with potassium supplementation. Monitor BMP. Constipation. Patient has not had a bowel movement over 1 week. Supplements ordered. Assess response. Acute kidney insufficiency likely with chronic renal disease stage III- last creatine from 2016- was 1.8 - Continue on IV fluids. Creatinine 1.9 today. - Patient nonoliguric good urine output at bedside - DC metformin with elevated creatinine. Avoid nephrotoxins. UTI. With presence of Klebsiella and gram-negative abdoulaye. Patient started on Rocephin. Continue. Left lower extremity mild cellulitis with chronic superficial wound - tibial surface - wound care team consulted, see order for wound care recommendations and management. - on Rocephin for above Diabetes type 2 patient states good hypoglycemic awareness - Check A1c, 8.8. - Discontinue Metformin with elevated creatinine. Patient will likely need insulin at home. ground water technician ordered, appreciate input recommendations - Hold glipizide for now. Follow blood sugars with sliding scale for now, cover as needed. - ADA diet History of CAD status post CABG Hypertension Hyperlipidemia - Continue on medications Lopressor, amlodipine, aspirin, hydrochlorothiazide, Furosemide. statins. - FF BMP Heparin subcu for DVT prophylaxis PT consult CM consult for DC planning - may benefit from SNF Discharge Planning Patient needs a minimum of 3 night stay, will discharge to SNF on 12/16. Problem Qualifiers (1) UTI (urinary tract infection): Qualified Codes: N39.0 - Urinary tract infection, site not specified; R31.9 - Hematuria, unspecified (2) Acute on chronic kidney failure: Cortney Hollis Dec 15, 2017 12:57
[2017-12-15] MEDS ORDERED: POTASSIUM CHLORIDE 10 MEQ CONTROLLED RELEASE TAB PO ONE (13:00)
[2017-12-15 13:36] VITALS: BP 130/61
[2017-12-15] MEDS ORDERED: TRAD5TAB PO (14:56)
[2017-12-15 15:42] VITALS: BP 144/77; PULSE 68; RESP 20; TEMP 98.3; O2SAT 95
[2017-12-15 19:30] VITALS: BP 149/69; PULSE 64; RESP 20; TEMP 96.8; O2SAT 93
[2017-12-15] MEDS: cefTRIAXone INJ 1,000 MG in SODIUM CHLORIDE 0.9% INJ 100 ML IV SCH (21:26)
[2017-12-15] MEDS: TAMSULOSIN HCL 0.4 MG CAP PO SCH (21:28)
[2017-12-15] MEDS: ACETAMINOPHEN 325 MG TAB PO PRN (23:49)
[2017-12-16] VITALS: BP 120/59; PULSE 60; RESP 20; TEMP 97; O2SAT 93
[2017-12-16 04:00] VITALS: BP 126/60; PULSE 57; RESP 20; TEMP 96.3; O2SAT 94
[2017-12-16 05:33] LABS: BICARBONATE 27.1 MEQ/L (21.0-32.0); CALCIUM 8.4 MG/DL (8.5-10.1)
[2017-12-16 05:37] LABS: CREATININE 1.7 MG/DL (0.60-1.30)
--- NOTE | 2017-12-16 07:52 | HHI.DS ---
Discharge Summary Admission Date Dec 13, 2017 at 10:22 Discharge Date: Dec 16, 2017 Admitting Diagnosis UTI, Acute on chronic kidney failure (1) UTI (urinary tract infection) ICD Code: N39.0 - Urinary tract infection, site not specified Status: Acute (2) Generalized weakness inability to stand (3) Acute on chronic kidney failure ICD Code: N17.9 - Acute kidney failure, unspecified; N18.9 - Chronic kidney disease, unspecified Status: Acute Procedures Please see below Brief History - From Admission Patient is a 67-year-old male with history of diabetes type 2, CAD status post CABG in 2002, right BKA, hypertension left TMA who gets around mainly with a power chair. He presented to the ER complaining of increasing weakness on both lower extremity that started 5 days ago. Individually patient states he moves all muscle group very well but however whenever he stands he feels that he cannot bear weight if even with holding onto the bars. "Cannot stand up". Otherwise patient denies any fever or chest pain shortness of breath. Patient has been voiding well however incidentally yesterday complained of some burning sensation during urination. Patient denies any back pain. Persistence prompted consult to ER and was admitted for evaluation. On review of medications , patient states that he was on Lipitor for hyperlipidemia -and has been on this for a long time and per patient was recently switched to Crestor. And wondering if this has anything to do with it. He checks his blood sugars regularly and ranges around 100-170. Patient states good hypoglycemic awareness. Patient lives with his ex-. CBC/BMP: 12/15/17 0549 12/16/17 0443 Significant Findings Laboratory Tests Test 12/14/17 05:30 12/15/17 05:49 12/16/17 04:43 Blood Urea Nitrogen 42 MG/DL (7-18) 36 MG/DL (7-18) 27 MG/DL (7-18) Creatinine 2.10 MG/DL (0.60-1.30) 1.90 MG/DL (0.60-1.30) 1.70 MG/DL (0.60-1.30) Total Protein 6.3 GM/DL (6.4-8.2) Albumin 2.5 GM/DL (3.4-5.0) Aspartate Amino Transf (AST/SGOT) 74 U/L (15-37) Potassium Level 3.2 MEQ/L (3.5-5.1) 3.4 MEQ/L (3.5-5.1) Estimat Glomerular Filtration Rate 32 ML/MIN (>89) 35 ML/MIN (>89) 40 ML/MIN (>89) Hemoglobin A1c 8.8 % (4.3-6.0) Red Blood Count 3.83 MIL/MM3 (4.50-5.90) Hemoglobin 10.9 GM/DL (13.0-17.0) Hematocrit 33.4 % (39.0-51.0) Monocytes (%) (Auto) 9.1 % (0.0-8.0) Eosinophils (%) (Auto) 5.6 % (0.0-4.0) Eosinophils # (Auto) 0.5 TH/MM3 (0-0.4) Calcium Level 8.4 MG/DL (8.5-10.1) 8.4 MG/DL (8.5-10.1) Chloride Level 109 MEQ/L (98-107) 112 MEQ/L (98-107) Anion Gap 4 MEQ/L (5-15) Random Glucose 147 MG/DL (74-106) PE at Discharge GENERAL: Awake alert oriented 3 not in acute distress SKIN: No rashes, ecchymoses or lesions. HEAD: Atraumatic. Normocephalic. EYES: Pupils equal round and reactive. Extraocular motions intact. No scleral icterus. No injection or drainage. ENT: Nose without bleeding. Uvula midline. Airway patent. NECK: Trachea midline. No JVD or lymphadenopathy. Supple CARDIOVASCULAR: Regular rate and rhythm without murmurs, gallops, or rubs. RESPIRATORY: Clear to auscultation. Breath sounds equal bilaterally. No wheezes , rales, or rhonchi. GASTROINTESTINAL: Abdomen soft, non-tender, nondistended. No guarding. MUSCULOSKELETAL: Right BKA stump well-healed, with blister with clear fluid filled. Left lower extremity ling area with an open superficial wound with light serous yellowish discharge, dressing in place. No joint tenderness, effusion, or edema noted. No calf tenderness. Negative Homans sign bilaterally. NEUROLOGICAL: Awake and alert. Cranial nerves II through XII intact. Motor and sensory grossly within normal limits. Five out of 5 muscle strength in all muscle groups. Normal speech. Pt update on day of discharge Follow-up weakness/UTI. Patient seen and examined, lying in bed comfortably no apparent distress. Patient did have bowel movement yesterday. Eating well with no abdominal pain, nausea or vomiting. clinical trial educator and to see patient, Tradjenta added to regimen. Metformin has been discontinued. Patient will discharge to rehab today. Hospital Course 67-year-old male with inability to stand/weakness and history of diabetic neuropathy. Skull therapy and Occupational Therapy consulted during hospitalization. Patient's baseline gets around with a power chair. Home gabapentin was restarted. Patient was hypokalemic upon admission, this resolved with replacement therapy. Patient was also constipated with reports of no bowel movement over 1 week. Supplements ordered and patient did have bowel movement before discharge. Patient did present with acute kidney insufficiency likely with chronic renal disease stage III, patient's creatinine baseline is roughly around 1.8. This was resolved before discharge. Metformin was discontinued upon discharge due to elevated creatinine. Will educate patient on avoidance of nephrotoxins. Patient with a UTI with presence of Klebsiella gram-negative abdoulaye. Was placed on IV Rocephin. Given antibiotics upon discharge, encourage patient to continue to completion. Patient also with left lower extremity mild cellulitis with chronic superficial wound - tibial surface. Wound care team consulted during hospitalization with wound care recommendations as noted. Patient with type II uncontrolled diabetes, A1c 8.8. Metformin was discontinued due to elevated creatinine. clinical trial educator seen patient with recommendations to start Tradjenta to regimen. Follow blood sugars upon discharge before meals at bedtime and monitor for hypoglycemia. Will restart home glipizide. ADA diet recommended. Patient with history of CAD status post CABG, hypertension hyperlipidemia patient was continued on Lopressor, amlodipine, aspirin, Furosemide. statins. Will stop HCTZ, patients BP stable without it. Please have patient blood sugar checked ACHS at SNF. Pt Condition on Discharge: Stable Discharge Disposition: Discharge to SNF Discharge Time: > 30 minutes Discharge Instructions DIET: Follow Instructions for: Heart Healthy Diet, Diabetic Diet Speech Therapy-Diet Recommends: Regular Activities you can perform: Regular-No Restrictions Other Activity Instructions: Please check BGM ACHS at SNF. Follow up Referrals: PCP Follow-up - 1 Week New Medications: Amoxicillin-Clavulanate (Amoxicillin-Clavulanate) 875-125 mg Tab 875 MG PO BID for Infection for 7 Days, #14 TAB 0 Refills not for use in CrCl <30 mL/minute Linagliptin (Tradjenta) 5 Mg Tab 5 MG PO DAILY for Blood Sugar Management for 30 Days, #30 TAB 0 Refills Atorvastatin (Atorvastatin) 40 Mg Tab 40 MG PO DAILY for hyperlipidemia for 30 Days, #30 TAB Continued Medications: Amlodipine (Amlodipine) 10 Mg Tab 10 MG PO DAILY for Blood Pressure Management, #30 TAB 0 Refills Aspirin (Aspirin Children's) 81 Mg Chew 81 MG CHEW DAILY, TAB 0 Refills Ergocalciferol (Ergocalciferol) 50,000 Unit Cap 09629 UNITS PO Q7D for Nutritional Supplement, #30 CAP 0 Refills Furosemide (Lasix) 20 Mg Tab 20 MG PO DAILY, #30 TAB 0 Refills Gabapentin (Gabapentin) 300 Mg Cap 300 MG PO BID, #60 CAP 0 Refills Glipizide (Glipizide) 10 Mg Tab 10 MG PO BIDAC for Blood Sugar Management, #60 TAB 0 Refills Take 30 minutes before a meal Metoprolol Tartrate (Metoprolol Tartrate) 25 Mg Tab 25 MG PO BID, #60 TAB 0 Refills Pancrelipase (Creon) 3,000-9,500-15,000 Units Cap 1 CAP PO BID for Digestive Aid, #90 CAP 0 Refills Pantoprazole (Protonix) 40 Mg Tab 40 MG PO DAILY for Reflux, #30 TAB 0 Refills Tamsulosin (Tamsulosin) 0.4 Mg Cap 0.4 MG HS for Manage Prostate Problems, #30 CAP 0 Refills Discontinued Medications: Hydrochlorothiazide (Hydrochlorothiazide) 25 Mg Tab 25 MG PO DAILY, #30 TAB 0 Refills Metformin (Metformin) 1,000 Mg Tab 1000 MG PO BIDPC for Blood Sugar Management, #60 TAB 0 Refills Rosuvastatin (Crestor) 40 Mg Tab 40 MG PO DAILY for Cholesterol Management, #30 TAB 0 Refills Additional Information Wound care recommendations: L medial ankle: 1. Please cleanse wound with normal saline only and pat dry. 2. Apply frankie thick coverage of Santyl ointment with 2x2 gauze pad just over wound bed and not on intact skin 3. Cover with dry 4x4 gauze pads 4. Secure dressing with rolled gauze and tape. 5. Change dressing daily L ling, and L upper mid ling 1. Cleanse wounds with normal saline and pat dry. 2. Apply oil emulsion gauze just over wound beds and not intact skin 3. Cover with dry 4x4 gauze pads. 4. Secure dressing with ABD pad, rolled gauze and tape. 5. Change dressing every 2 days or PRN if saturated or dislodged L knee and L proximal ling skin tears 1. Cleanse wound with normal saline and pat dry. 2.Apply Versatel one over open skin tears 3. Cover with dry 4x4 gauze pad 4. Secure dressing with rolled gauze and tape. Leave versatel in place for 5 days, may change gauze and rolled gauze securing dressing as needed. R inner buttock 1. Please cleanse buttock wound with normal saline and pat dry 2. Apply Calazime skin protectant paste to R inner buttock area covering wound BID and PRN Cortney Hollis [facility] Dec 16, 2017 07:52
--- NOTE | 2017-12-16 07:52 | HHI.DCPOC ---
Discharge Care Plan Diagnosis: (1) Acute on chronic kidney failure (2) Generalized weakness inability to stand (3) UTI (urinary tract infection) Goals to Promote Your Health * To prevent worsening of your condition and complications * To maintain your health at the optimal level Directions to Meet Your Goals Take your medications as prescribed Follow your dietary instruction Follow activity as directed Keep your appointments as scheduled Take your immunizations and boosters as scheduled If your symptoms worsen call your PCP, if no PCP go to Urgent Care Center or Emergency Room Smoking is Dangerous to Your Health. Avoid second hand smoke Call the 24-hour hour crisis hotline for domestic abuse at Cortney Hollis Dec 16, 2017 07:52
[2017-12-16] MEDS ORDERED: AMOX875T2 PO (07:58)
[2017-12-16] MEDS ORDERED: ATOR40TA16 PO (07:58)
[2017-12-16 08:00] VITALS: BP 146/66; PULSE 89; RESP 16; TEMP 96.7; O2SAT 90
[2017-12-16] MEDS: ASPIRIN 81 MG CHEW TAB CHEW SCH (08:17)
[2017-12-16] MEDS: INSULIN ASPART SUPPLEMENTAL SCALE SQ SCH ×2 (08:17→11:53)
[2017-12-16] MEDS: LIPASE/PROTEASE/AMYLASE (6,000/19,000/30,000) CAP PO SCH (08:18)
[2017-12-16] MEDS: GABAPENTIN 300 MG CAP PO SCH (08:18)
[2017-12-16] MEDS: METOPROLOL TARTRATE 25 MG TAB PO SCH (08:18)
[2017-12-16] MEDS: FUROSEMIDE 20 MG TAB PO SCH (08:18)
[2017-12-16] MEDS: PANTOPRAZOLE SOD 40 MG DELAYED RELEASE TAB PO SCH (08:19)
[2017-12-16] MEDS: DOCUSATE SODIUM 50 MG/SENNA 8.6 MG TAB PO SCH (08:28)
[2017-12-16] MEDS: HEPARIN SODIUM - SQ 10,000 UNITS/ML VIAL SQ SCH (08:28)
[2017-12-16] MEDS: SODIUM CHLORIDE 0.9% FLUSH 10 ML FLUSH IV FLUSH SCH (08:29)
[2017-12-16] MEDS ORDERED: ATORVASTATIN 40 MG TAB PO SCH (09:00)
[2017-12-16 12:00] VITALS: BP 140/79; PULSE 90; RESP 18; TEMP 98; O2SAT 76
[2017-12-16] MEDS: COLLAGENASE OINT 30 GM TUBE TOPICAL SCH (12:31)
[2017-12-16] MEDS: POTASSIUM CHLORIDE INJ 10 MEQ in SODIUM CHLOR 0.9% 1000 ML INJ 1,000 ML IV SCH (14:50)
== END 2017-12-16 15:22 | DRG 683 ==
LOC: PHED 17:56 → PHEDA 20:31 → PH3B 21:44 → OBSVTOIN 12-13 10:22
PROVIDERS: ADMIT Hospitalist; ATTEND Hospitalist
DX: N17.9 Acute kidney failure, unspecified (principal); N39.0 Urinary tract infection, site not specified; E11.22 Type 2 diabetes mellitus with diabetic chronic kidney disease; E11.40 Type 2 diabetes mellitus with diabetic neuropathy, unspecified; L03.116 Cellulitis of left lower limb; I12.9 Hypertensive chronic kidney disease with stage 1 through stage 4 chronic kidney disease, or unspecified chronic kidney disease; N18.3 Chronic kidney disease, stage 3 (moderate); R31.9 Hematuria, unspecified; I25.10 Atherosclerotic heart disease of native coronary artery without angina pectoris; E78.5 Hyperlipidemia, unspecified; E11.649 Type 2 diabetes mellitus with hypoglycemia without coma; E87.6 Hypokalemia; B96.1 Klebsiella pneumoniae [K. pneumoniae] as the cause of diseases classified elsewhere; K59.00 Constipation, unspecified; E11.65 Type 2 diabetes mellitus with hyperglycemia; E86.0 Dehydration; Z89.511 Acquired absence of right leg below knee; Z89.422 Acquired absence of other left toe(s); Z95.1 Presence of aortocoronary bypass graft; Z79.84 Long term (current) use of oral hypoglycemic drugs
CPT/HCPCS: 76937; 80048; 80053; 81001; 82948; 83036; 83735; 85025; 86403; 87070; 87077; 87086; 87186; 87205; 96374; G0378; G8987-GP; G8988-GP; J0696; J1644; J1815; J3480; J7030

== ENCOUNTER 2018-04-17 09:16 | Inpatient (IN) ==
[2018-04-17] MEDS ORDERED: Piperacil/Tazo 2.25 GM Premix 50 ML IV.SIG ONE (10:14)
--- NOTE | 2018-04-17 10:22 | ED ---
HPI General Chief complaint: Extremity Injury, Lower Stated complaint: Leg pain Time Seen by Provider: 04/17/18 10:10 Source: patient Mode of arrival: EMS Limitations: no limitations History of Present Illness HPI narrative: Patient states that he follows up with wound care with Dr. Aguirre of his left lower extremity. 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 However according to patient he is able to stand up on his left leg and ambulate with assistance device. However today he was unable to, secondary to the pain and he felt unable to support his weight, his family attempted to aid him.... Onset (ago): day(s) (1) Location: left and lower extremity Radiation: non-radiation Severity: moderate Severity scale (1-10): 5 Quality: burning and sharp Pain Consistency: intermittent Relieving factors: none Exacerbating factors: movement Associated symptoms: denies other symptoms Treatments prior to arrival: none Related Data Home Medications Medication Instructions Recorded Confirmed amlodipine 10 mg PO QPM 04/17/18 04/17/18 aspirin [Aspir-81] 81 mg PO DAILY 04/17/18 04/17/18 ergocalciferol (vitamin D2) 50,000 unit PO QWEEK 04/17/18 04/17/18 furosemide 20 mg PO DAILY 04/17/18 04/17/18 gabapentin 300 mg PO BID 04/17/18 04/17/18 glipizide 10 mg PO BID 04/17/18 04/17/18 ibuprofen 800 mg PO TID 04/17/18 04/17/18 linagliptin [Tradjenta] 5 mg PO DAILY 04/17/18 04/17/18 pujjsg-[id number]-wtbltdh [Creon] 1 cap PO BID 04/17/18 04/17/18 metoprolol tartrate 25 mg PO BID 04/17/18 04/17/18 multivitamin 1 tab PO DAILY 04/17/18 04/17/18 naproxen sodium [Aleve] 220 mg PO DAILY 04/17/18 04/17/18 pantoprazole 40 mg PO DAILY 04/17/18 04/17/18 pravastatin 40 mg PO HS 04/17/18 04/17/18 tamsulosin 0.4 mg PO QPM 04/17/18 04/17/18 Allergies Allergy/AdvReac Type Severity Reaction Status Date / Time No Known Allergies Allergy Unverified 04/17/18 09:23 Review of Systems ROS: all other systems reviewed are negative PMFSH History History Provided By: Patient Medical History Medical History Blindness of right eye (Acute) CAD (coronary artery disease) (Acute) CHF (congestive heart failure) (Acute) Diabetes (Acute) HTN (hypertension) (Acute) Hearing deficit (Acute) Hypercholesteremia (Acute) Myocardial infarct (Acute) Peripheral neuropathy (Acute) Prostatic hyperplasia (Acute) Renal infection (Acute) Surgical History Surgical History Hx of CABG (Acute) S/P BKA (below knee amputation) (Acute) Social History Social History Substance History: No History of Abuse Second Hand Smoke Exposure: No Smoking Status: Never smoker How Often Do You Have a Drink Containing Alcohol: Never Recent Travel in [facility] within the Last 8 Weeks: No Recent Out of Country Travel within the Last 8 Weeks: No Immunization History Tetanus Immunization: <5 Years Hx Influenza Vaccine This Season: Yes Exam Narrative Exam Narrative: GENERAL: Well-nourished, well-developed patient in no apparent distress. SKIN: Warm and dry. HEAD: Atraumatic. Normocephalic. EYES: Pupils equal and round. No scleral icterus. No injection or drainage. ENT: No nasal bleeding or discharge. Mucous membranes pink and moist. NECK: Trachea midline. No JVD. CARDIOVASCULAR: Regular rate and rhythm. no rubs or gallops RESPIRATORY: No accessory muscle use. Clear to auscultation. Breath sounds equal bilaterally. GASTROINTESTINAL: Abdomen soft, non-tender, nondistended. No rebound or guarding MUSCULOSKELETAL: Extremities without clubbing, cyanosis, or edema. No obvious deformities......right bka wihtout any skin lesions.....left partial distal foot amputation....distal tib fib area has chronic vascular insuff wounds to lateral distal fib and medial distal tib with mild sorrounding cellulitis NEUROLOGICAL: Awake and alert. No obvious cranial nerve deficits. Motor grossly within normal limits. Five out of 5 muscle strength in the arms and legs. Normal speech. Course Initial Documented Vital Signs Temperature 98.7 F 04/17/18 09:25 Pulse Rate 79 04/17/18 09:25 Respiratory Rate 23 04/17/18 09:25 Blood Pressure 166/68 H 04/17/18 09:25 Pulse Oximetry 97 04/17/18 09:25 Last Documented Vital Signs Temperature 98.7 F 04/17/18 09:25 Pulse Rate 90 04/17/18 14:03 Respiratory Rate 21 04/17/18 14:03 Blood Pressure 145/70 H 04/17/18 14:03 Pulse Oximetry 96 04/17/18 14:03 Medical Decision Making MDM Narrative Medical decision making narrative: Patient is a difficult IV access, however does not have any obvious sirs or sepsis criteria met based on vitals, and so therefore no indication to place a central line at this present time. Will place a consult for vascular access to be placed. Patient will have an ultrasound to rule out DVT, also will have peripheral inserted IV via ultrasound used to rule out to provide and antibiotics one-time dose as well as check other parameters for sepsis. The patient will also be evaluated for any other sources of infection. Such as pneumonia or UTI. CBC shows leukocytosis with left shift, normal platelet count, no anemia. Lactic acid 1.2 which is negative Creatinine of 2.19 GFR 30 estimated creatinine clearance of 50 Electrolytes were all within normal limits with the exception of a random glucose 290 Ultrasound the left lower extremity negative for DVT At this present time the patient does not meet any criteria for SIRS or sepsis therefore the patient will be provided with a single dose of dalvance and dc home (patient is able to tolerate po and ambulate on his own with assistance which is his baseline) Medical Screen Exam Complete: Yes Emergency Medical Condition: Yes Differential Diagnosis Differential Diagnosis: UTI versus pneumonia versus cellulitis versus DVT versus neuropathy Medical Records Medical records reviewed: Yes I reviewed the patient's medical records. Lab Data Lab results reviewed: Yes I reviewed the patient's lab results. Result diagrams: 04/17/18 10:48 04/17/18 10:48 Lab Results 04/17/18 04/17/18 04/17/18 Range/Units 10:48 10:48 10:53 WBC 15.4 H (4.0-11.0) th/mm3 RBC 4.29 L (4.50-5.90) mil/mm3 Hgb 11.8 L (13.0-17.0) gm/dL Hct 36.9 L (39.0-51.0) % MCV 86.0 (80.0-100.0) fL MCH 27.6 (27.0-34.0) pg MCHC 32.1 (32.0-36.0) % RDW 15.9 (11.6-17.2) % Plt Count 179 (150-450) th/mm3 MPV 7.7 (7.0-11.0) fL Neut % (Auto) 84.5 H (16.0-70.0) % Lymph % (Auto) 7.9 L (9.0-44.0) % Coal % (Auto) 6.7 (0.0-8.0) % Eos % (Auto) 0.7 (0.0-4.0) % Baso % (Auto) 0.2 (0.0-2.0) % Neut # (Auto) 13.0 H (1.8-7.7) th/mm3 Lymph # (Auto) 1.2 (1.0-4.8) th/mm3 Coal # (Auto) 1.0 H (0.0-0.9) th/mm3 Eos # (Auto) 0.1 (0.0-0.4) th/mm3 Baso # (Auto) 0.0 (0.0-0.2) th/mm3 WBC Differential . Differential Comment Auto diff final Sodium 139 (136-145) meq/L Potassium 4.5 (3.5-5.1) meq/L Chloride 107 (98-107) meq/L Carbon Dioxide 26.7 (21.0-32.0) meq/L Anion Gap 5 (5-15) meq/L BUN 31 H (7-18) mg/dL Creatinine 2.19 H (0.60-1.30) mg/dL Estimated GFR 30 L (>89) mL/min Random Glucose 290 H (74-106) mg/dL Lactic Acid 1.2 (0.4-2.0) mmol/L Calcium 8.7 (8.5-10.1) mg/dL Imaging Data Radiologist's impression: Venous Doppler Study 04/17/18 10:10 CONCLUSION: 1. No sonographic evidence for left lower extremity DVT. Discharge Plan Discharge Disposition Patient Disposition: 01 Discharge Home Discharge Condition Condition: Stable Discharge Order Discharge Orders: Discharge Order (Routine); Ordered 04/17/18 Ordered By: Ming Bagley Discharge Details Diagnosis: Stasis ulcer of left lower extremity, Cellulitis Physicians Team ED Provider: Ming Bagley Primary Care Provider: Zackary Chapa Rxs /Orders / Referrals /Forms Prescriptions: No Action multivitamin Tablet 1 tab PO DAILY RF: 0 pravastatin 40 mg Tablet 40 mg PO HS RF: 0 glipizide 10 mg Tablet 10 mg PO BID RF: 0 aspirin [Aspir-81] 81 mg Tablet,Delayed Release (Dr/Ec) 81 mg PO DAILY RF: 0 tamsulosin 0.4 mg Capsule,Extended Release 24hr 0.4 mg PO QPM RF: 0 amlodipine 10 mg Tablet 10 mg PO QPM RF: 0 metoprolol tartrate 25 mg Tablet 25 mg PO BID RF: 0 gabapentin 300 mg Capsule 300 mg PO BID RF: 0 ibuprofen 800 mg Tablet 800 mg PO TID RF: 0 pantoprazole 40 mg Tablet,Delayed Release (Dr/Ec) 40 mg PO DAILY RF: 0 naproxen sodium [Aleve] 220 mg Tablet 220 mg PO DAILY RF: 0 furosemide 20 mg Tablet 20 mg PO DAILY RF: 0 ergocalciferol (vitamin D2) 50,000 unit Capsule 50,000 unit PO QWEEK RF: 0 linagliptin [Tradjenta] 5 mg Tablet 5 mg PO DAILY RF: 0 gsscwy-qvmvytgh-dfkmswa [Creon] 3,000-9,500- 15,000 unit Capsule,Delayed Release(Dr/Ec) 1 cap PO BID RF: 0 Discharge Instructions Patient Printed Instructions: Dalbavancin (By injection), Cellulitis (ED) Additional Instructions: Continue follow-up with for further wound care, you were given a single dose of IV antibiotic which will stay in your system over a period of time. He did not need to be on oral antibiotics as this medication will take care of the. He had an early infection on the left lower extremity but without any evidence of blood clot on your entire left lower extremity. Also you are highly encouraged to contact Dr. Miles so he can arrange for rehab placement, today you had a physical therapy evaluation and recommendation for rehab placement however he did not meet any criteria for admission. Discharge Interventions Interventions: Vital Signs Last Done: 04/17/18 14:03 Status ED Status: Ready for Discharge
[2018-04-17 11:28] LABS: Baso % (Auto) 0.2 % (0.0-2.0); Eos # (Auto) 0.1 th/mm3 (0.0-0.4); Eos % (Auto) 0.7 % (0.0-4.0); Hematocrit 36.9 % (39.0-51.0); Hemoglobin 11.8 gm/dL (13.0-17.0); Lymph # (Auto) 1.2 th/mm3 (1.0-4.8); Lymph % (Auto) 7.9 % (9.0-44.0); Mean Corpuscular HGB Conc 32.1 % (32.0-36.0); Mean Corpuscular Hemoglobin 27.6 pg (27.0-34.0); Mean Platelet Volume 7.7 fL (7.0-11.0); Mono % (Auto) 6.7 % (0.0-8.0); Neut % (Auto) 84.5 % (16.0-70.0); Platelet Count 179 th/mm3 (150-450); Red Blood Count 4.29 mil/mm3 (4.50-5.90); Red Cell Distribution Width 15.9 % (11.6-17.2); White Blood Count 15.4 th/mm3 (4.0-11.0)
[2018-04-17 11:48] LABS: Calcium 8.7 mg/dL (8.5-10.1); Carbon Dioxide 26.7 meq/L (21.0-32.0); Potassium 4.5 meq/L (3.5-5.1)
--- NOTE | 2018-04-17 11:55 | US ---
EXAM DATE: 04/17/2018 11:42 AM EDT AGE/SEX: 68 years / Male INDICATIONS: Left leg swelling. Edema. CLINICAL DATA: This is the patient's initial encounter. Patient reports that signs and symptoms have been present for 1 day and indicates a pain score of 5/10. MEDICAL/SURGICAL HISTORY: Diabetes. Hypercholesterolemia. Hypertension. Coronary artery dise ase. Congestive heart failure. Renal infection. CABG. COMPARISON: No prior exams available for comparison. TECHNIQUE: Venous ultrasound of both lower extremities was performed from the inguinal ligament to t he proximal calf. Real-time, color Doppler and spectral tracing, compression and augmentation techni ques were used. FINDINGS: Normal compression of the deep venous system from the inguinal region to the proximal calf . No echogenic clot is seen. Normal response of the venous system to augmentation and respiration. CONCLUSION: 1. No sonographic evidence for left lower extremity DVT. Electronically signed by: Kenny Perez MD 04/17/2018 11:54 AM EDT
[2018-04-17] MEDS ORDERED: ASP: Only reason for admit - IV antibiotics OTHER ONE ×2 (11:56→11:59)
[2018-04-17] MEDS ORDERED: ASP: Location of Dalbavancin administration OTHER ONE (11:56)
[2018-04-17] MEDS ORDERED: DALBAVANCIN IV.SIG STA ×2 (13:52)
[2018-04-17] MEDS ORDERED: DEXTROSE 5% IV.SIG STA ×2 (13:52)
[2018-04-17] MEDS ORDERED: WATER IV.SIG STA ×2 (13:52)
[2018-04-17] MEDS ORDERED: Dalbavancin Inj 1,500 MG in Dextrose 5% in Water Inj 500 ML IV.SIG STA ×2 (13:54)
[2018-04-17] MEDS ORDERED: Morphine Inj 4 MG/ML Vial IV.PUSH ONE (16:55)
[2018-04-17] MEDS ORDERED: Vancomycin Consult Pharmacy OTHER SCH (18:21)
[2018-04-17] MEDS ORDERED: Bisacodyl 10 MG Supp RECTAL PRN (18:24)
[2018-04-17] MEDS ORDERED: Acetaminophen 325 MG Tablet PO PRN (18:24)
[2018-04-17] MEDS ORDERED: Temazepam 15 MG Capsule PO PRN (18:24)
[2018-04-17] MEDS ORDERED: Morphine Inj 4 MG/ML Vial IV.PUSH PRN ×3 (18:26)
[2018-04-17] MEDS ORDERED: Naloxone Inj 0.4 MG/ML Vial IV.PUSH PRN (18:26)
[2018-04-17] MEDS ORDERED: Piperacil/Tazo 3.375 GM Premix 50 ML IV.SIG SCH (18:30)
--- NOTE | 2018-04-17 18:54 | P.HPIM ---
History of Present Illness Service: [facility] Primary Care Physician: Zackary Chapa MD Chief Complaint: Left lower extremity injury and weakness History of Present Illness: Patient is a 68-year-old male who presented to the emergency department after having issues with lower extremity pain and wound. Patient follow-ups with Dr. Hector regarding his left lower extremity wounds. 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 Patient has had difficulty standing and to ambulate with his right lower extremity prosthesis today he was not able to do this secondary to pain in did not feel that he was able to support his weight and family attempted to eat him and therefore brought him to the emergency department with more pain. Patient was already given DALVance in the emergency department will consult infectious disease continue on vancomycin and Zosyn Has a history of MRSA,, as well as hypertension, diabetes, peripheral neuropathy , chronic pancreatitis, GERD, BPH, hyperlipidemia, coronary artery disease, history of coronary artery bypass graft, and wound infection with reconstructive surgery of the sternal wound. Inpatient Certification: I certify that the inpatient services were ordered in accordance with Medicare regulations governing the order. This includes certification that hospital inpatient services are reasonable and necessary and in the case of services not specified as inpatient-only under 42 CFR 419.22(n), that they are appropriately provided as inpatient services in accordance to with the 2-midnight benchmark under 43 CFR 412.3(e) Estimated Total Length of Stay (Days): 3 Plans for Post Hospital Care: SNF Review of Systems All other systems reviewed negative except as stated in HPI [facility] - History History Provided By: Patient - Medical History Medical History: Medical History (Last Updated 04/17/18 @ 18:35 by Geovanni Shanks DO) Blindness of right eye CAD (coronary artery disease) CHF (congestive heart failure) Chronic wound of extremity Diabetes HTN (hypertension) Hearing deficit History of right below knee amputation Hypercholesteremia Myocardial infarct Pancreatitis, chronic Peripheral neuropathy Prostatic hyperplasia Renal infection - Surgical History Surgical History: Surgical History (Last Updated 04/17/18 @ 18:35 by Geovanni Shanks DO) Hx of CABG S/P BKA (below knee amputation) Status post transmetatarsal amputation of left foot - Family History Family History: Family History (Last Updated 04/17/18 @ 18:36 by Geovanni Shanks DO) Other Family history of diabetes mellitus Family history of hypertension - Tobacco History Second Hand Smoke Exposure: No Smoking Status: Never smoker - Alcohol History How Often Do You Have a Drink Containing Alcohol: Never - Substance Use History Substance History: No History of Abuse - Travel History History of Recent Travel: No Recent Travel in the [place] Within the Last 8 Weeks: No Recent Travel Out of the Country Within the Last 8 Weeks: No - Immunization History Tetanus Immunization: <5 Years Hx Influenza Vaccine This Season: Yes Medications and Allergies Active Medications: Active Medications Acetaminophen (Tylenol) 650 mg PO Q4H PRN PRN Reason: Temp > 100.4 Al Hydroxide/Mg Hydroxide (Milk Of Magnesia Liq) 30 ml PO Q12H PRN PRN Reason: Mild Constipation Aspirin (Ecotrin) 81 mg PO DAILY [facility] Bisacodyl (Dulcolax Supp) 10 mg RECTAL DAILY PRN PRN Reason: SEVERE CONSITIPATION Clonidine HCl (Catapres) 0.1 mg PO Q6H PRN PRN Reason: HYPERTENSION Ergocalciferol (Vitamind2) 50,000 unit PO QWEEK [facility] Furosemide (Lasix) 20 mg PO DAILY [facility] Gabapentin (Neurontin) 300 mg PO BID [facility] Glipizide (Glucotrol) 10 mg PO BID [facility] Heparin Sodium (Porcine) (Heparin Inj) 5,000 units SQ Q8H [facility] Piperacillin/Tazobactam/Dextrose (Zosyn 3.375 Gm Premix) 50 mls @ 100 mls/hr IV.SIG Q8H [facility] Ibuprofen (Motrin) 800 mg PO TID [facility] Insulin Aspart (Novolog Insulin Correctional Sugar Inj) 0 unit SQ ACHS [facility]; Protocol Lactulose (Lactulose Liq) 30 ml PO DAILY PRN PRN Reason: SEVERE CONSITIPATION Metoprolol Tartrate (Lopressor) 25 mg PO BID [facility] Morphine Sulfate (Morphine Inj) 2 mg IV.PUSH Q3H PRN PRN Reason: PAIN 3-5; IF UABLE TO TAKE PO Morphine Sulfate (Morphine Inj) 4 mg IV.PUSH Q3H PRN PRN Reason: PAIN 6-10;IF UNABLE TO TAKE PO Morphine Sulfate (Morphine Inj) 4 mg IV.PUSH Q3H PRN PRN Reason: BREAKTHROUGH PAIN Naloxone HCl (Narcan Inj) 0.4 mg IV.PUSH UNSCH PRN PRN Reason: SEE LABEL COMMENTS Non-Formulary Medication (Linagliptin [Tradjenta]) 5 mg PO DAILY [facility] Non-Formulary Medication (Nsbjdz-Rtuhckfa-Vsegonr [Creon]) 1 cap PO BID [facility] Non-Formulary Medication (Multivitamin [Multivitamin]) 1 tab PO DAILY [facility] Ondansetron HCl (Zofran Inj) 4 mg IV.PUSH Q6H PRN PRN Reason: NAUSEA OR VOMITING Oxycodone/Acetaminophen (Percocet 10/325 Mg) 1 tab PO Q6H PRN PRN Reason: PAIN SCALE 6 TO 10 Oxycodone/Acetaminophen (Percocet 5/325 Mg) 1 tab PO Q6H PRN PRN Reason: PAIN SCALE 3 TO 5 Pantoprazole Sodium (Protonix) 40 mg PO DAILY [facility] Pharmacy Profile Note (Vancomycin Consult Pharmacy) 1 each OTHER ONCE ONE Stop: 04/17/18 18:22 Senna/Docusate Sodium (Yen-Colace) 1 tab PO BID [facility] Sennosides (Senokot) 17.2 mg PO Q12H PRN PRN Reason: Moderate Constipation Temazepam (Restoril) 15 mg PO HS PRN PRN Reason: INSOMNIA Allergies Allergy/AdvReac Type Severity Reaction Status Date / Time No Known Allergies Allergy Unverified 04/17/18 09:23 Home Medications Medication Instructions Recorded Confirmed Type amlodipine 10 mg PO QPM 04/17/18 04/17/18 History aspirin [Aspir-81] 81 mg PO DAILY 04/17/18 04/17/18 History ergocalciferol (vitamin D2) 50,000 unit PO QWEEK 04/17/18 04/17/18 History furosemide 20 mg PO DAILY 04/17/18 04/17/18 History gabapentin 300 mg PO BID 04/17/18 04/17/18 History glipizide 10 mg PO BID 04/17/18 04/17/18 History ibuprofen 800 mg PO TID 04/17/18 04/17/18 History linagliptin [Tradjenta] 5 mg PO DAILY 04/17/18 04/17/18 History [id number]-qklalaum-dcdwvfl [Creon] 1 cap PO BID 04/17/18 04/17/18 History metoprolol tartrate 25 mg PO BID 04/17/18 04/17/18 History multivitamin 1 tab PO DAILY 04/17/18 04/17/18 History naproxen sodium [Aleve] 220 mg PO DAILY 04/17/18 04/17/18 History pantoprazole 40 mg PO DAILY 04/17/18 04/17/18 History pravastatin 40 mg PO HS 04/17/18 04/17/18 History tamsulosin 0.4 mg PO QPM 04/17/18 04/17/18 History Exam Vital signs: Vital Signs 04/17/18 09:25 04/17/18 14:03 04/17/18 17:16 Temperature 98.7 F Pulse Rate 79 90 90 Respiratory Rate 23 21 18 Blood Pressure 166/68 H 145/70 H 154/68 H Pulse Oximetry 97 96 94 L Intake & Output 04/16/18 04/17/18 04/17/18 18:59 06:59 18:59 Intake Total 50 / 50 Balance 50 / 50 Weight 113.398 kg Intake: IV 50 / 50 Zosyn 2.25 GM Premix 50 ML @ 50 / 50 100 mls/hr IV.SIG ONCE ONE Rx#: [id number] Narrative: GENERAL: Awake alert and oriented 3 talkative and cooperative SKIN: Warm and dry. Wound to left lower extremities multiple HEAD: Atraumatic. Normocephalic. EYES: Pupils equal and round. No scleral icterus. No injection or drainage. ENT: No nasal bleeding or discharge. Mucous membranes pink and moist. NECK: Trachea midline. No JVD. CARDIOVASCULAR: Regular rate and rhythm. S1-S2 no S3 or S4 RESPIRATORY: No accessory muscle use. Clear to auscultation. Breath sounds equal bilaterally. GASTROINTESTINAL: Abdomen soft, non-tender, nondistended. Hepatic and splenic margins not palpable. Obese MUSCULOSKELETAL: Extremities without clubbing, cyanosis, or edema. No obvious deformities. Right below the knee amputation and left TMA with multiple wounds NEUROLOGICAL: Awake and alert. No obvious cranial nerve deficits. Motor grossly within normal limits. 4 out of 5 muscle strength in the arms and legs. Normal speech. PSYCHIATRIC: Appropriate mood and affect; insight and judgment normal. Results - Labs CBC & Chem 7: 04/17/18 10:48 04/17/18 10:48 Labs: Short CBC 04/17/18 Range/Units 10:48 WBC 15.4 H (4.0-11.0) th/mm3 Hgb 11.8 L (13.0-17.0) gm/dL Hct 36.9 L (39.0-51.0) % Plt Count 179 (150-450) th/mm3 BMP 04/17/18 10:48 Sodium 139 Potassium 4.5 Chloride 107 Carbon Dioxide 26.7 BUN 31 H Creatinine 2.19 H Calcium 8.7 - Imaging Impressions Venous Doppler Study 04/17/18 10:10 CONCLUSION: 1. No sonographic evidence for left lower extremity DVT. Caprini VTE Risk Assessment Caprini VTE Risk Assessment: Moderate/High Risk (score >= 2) Caprini Risk Assessment Model: Point Value = 1 Point Value = 2 Point Value = 3 Point Value = 5 Age 41-60 Minor surgery BMI > 25 kg/m2 Swollen legs Varicose veins or History of unexplained or recurrent spontaneous Oral contraceptives or hormone replacement Sepsis (< 1 month) Serious lung disease, including pneumonia (< 1 month) Abnormal pulmonary function Acute myocardial infarction Congestive heart failure (< 1 month) History of inflammatory bowel disease Medical patient at bed rest Age 61-74 Arthroscopic surgery Major open surgery (> 45 min) Laparoscopic surgery (> 45 min) Malignancy Confined to bed (> 72 hours) Immobilizing plaster cast Central venous access Age >= 75 History of VTE Family history of VTE Factor V Leiden Prothrombin [id number] Lupus anticoagulant Anticardiolipin antibodies Elevated serum homocysteine Heparin-induced thrombocytopenia Other congenital or acquired thrombophilia Stroke (< 1 month) Elective arthroplasty Hip, pelvis, or leg fracture Acute spinal cord injury (< 1 month) Prophylaxis Regimen: Total Risk Factor Score Risk Level Prophylaxis Regimen 0-1 Low Early ambulation 2 Moderate Order ONE of the following: *Sequential Compression Device (SCD) *Heparin 5000 units SQ BID 3-4 Higher Order ONE of the following medications: *Heparin 5000 units SQ TID *Enoxaparin/Lovenox 40 mg SQ daily (WT < 150 kg, CrCl > 30 mL/min) *Enoxaparin/Lovenox 30 mg SQ daily (WT < 150 kg, CrCl > 10-29 mL/min) *Enoxaparin/Lovenox 30 mg SQ BID (WT < 150 kg, CrCl > 30 mL/min) AND/OR *Sequential Compression Device (SCD) 5 or more Highest Order ONE of the following medications: *Heparin 5000 units SQ TID (Preferred with Epidurals) *Enoxaparin/Lovenox 40 mg SQ daily (WT < 150 kg, CrCl > 30 mL/min) *Enoxaparin/Lovenox 30 mg SQ daily (WT < 150 kg, CrCl > 10-29 mL/min) *Enoxaparin/Lovenox 30 mg SQ BID (WT < 150 kg, CrCl > 30 mL/min) AND *Sequential Compression Device (SCD) Assessment and Plan - Plan Left lower extremity wounds with history of MRSA -Continue on vancomycin per pharmacy and Zosyn -Consult infectious disease -Consult Dr. Hector TOMORROW and wound care and layout man Generalized weakness Consult physical therapy and Occupational Therapy Consult case management for SNF placement Diabetes mellitus continue on sliding scale with Accu-Cheks before meals and at bedtime Continue on glipizide and TRADJENTA Coronary disease/CHF resume home medications continue on aspirin and furosemide Chronic pancreatitis continue on Creon and Protonix Hyperlipidemia resume home medications continue on his pravastatin Hypertension resume his amlodipine Peripheral neuropathy home medications BPH continue on Flomax GERD continue on his Protonix Coronary disease/CABG monitor for any other issues continue on his aspirin metoprolol and pravastatin and amlodipine Continue on DVT and GI prophylaxis Continue on proton pump inhibitor and subcu heparin Code Status: Full code Discussed Condition With: RN and patient and emergency room physician Discharge Planning: Pending evaluation by wound care and physician and case management will more than likely need SNF per physical therapy and Occupational Therapy evaluation
[2018-04-17] MEDS: Furosemide 20 MG Tablet PO SCH (19:07)
[2018-04-17] MEDS: Heparin - SQ 10,000 UNITS/ML Vial SQ SCH (19:07)
[2018-04-17] MEDS: Piperacil/Tazo 3.375 GM Premix 50 ML IV.SIG SCH (19:54)
[2018-04-17] MEDS ORDERED: LIPASE PROTEASE AMYLASE PO SCH (21:00)
[2018-04-17] MEDS: Gabapentin 300 MG Capsule PO SCH (22:43)
[2018-04-17] MEDS: oxyCODONE/Acetaminophen 10/325 Tablet PO PRN (22:44)
[2018-04-17] MEDS: Metoprolol Tartrate 25 MG Tablet PO SCH (22:44)
[2018-04-17] MEDS: glipiZIDE 10 MG Tablet PO SCH (22:44)
[2018-04-17] MEDS: Insulin NovoLOG Aspart Correctional Sugar Inj SQ SCH (22:46)
[2018-04-17] MEDS: Senna/Docusate Sodium 8.6/50 MG Tablet PO SCH (22:50)
[2018-04-18] MEDS: Piperacil/Tazo 3.375 GM Premix 50 ML IV.SIG SCH ×3 (04:10→21:31)
[2018-04-18] MEDS: Heparin - SQ 10,000 UNITS/ML Vial SQ SCH ×2 (05:31→13:53)
[2018-04-18 08:24] LABS: Baso % (Auto) 0.2 % (0.0-2.0); Eos # (Auto) 0.1 th/mm3 (0.0-0.4); Eos % (Auto) 0.9 % (0.0-4.0); Hematocrit 33.1 % (39.0-51.0); Hemoglobin 10.8 gm/dL (13.0-17.0); Lymph # (Auto) 1.3 th/mm3 (1.0-4.8); Lymph % (Auto) 8.3 % (9.0-44.0); Mean Corpuscular HGB Conc 32.7 % (32.0-36.0); Mean Corpuscular Hemoglobin 27.9 pg (27.0-34.0); Mean Corpuscular Volume 85.4 fL (80.0-100.0); Mean Platelet Volume 7.9 fL (7.0-11.0); Mono # (Auto) 1.1 th/mm3 (0.0-0.9); Mono % (Auto) 7.3 % (0.0-8.0); Neut # (Auto) 12.7 th/mm3 (1.8-7.7); Neut % (Auto) 83.3 % (16.0-70.0); Platelet Count 166 th/mm3 (150-450); Red Blood Count 3.87 mil/mm3 (4.50-5.90); Red Cell Distribution Width 15.9 % (11.6-17.2); White Blood Count 15.3 th/mm3 (4.0-11.0)
[2018-04-18 08:29] LABS: INR 1.1 Ratio; Prothrombin Time 10.8 sec (9.8-11.6)
[2018-04-18 08:34] LABS: Alanine Aminotransferase 13 U/L (12-78); Albumin 2.5 g/dL (3.4-5.0); Anion Gap 7 meq/L (5-15); Aspartate Aminotransferase 8 U/L (15-37); Blood Urea Nitrogen 28 mg/dL (7-18); Calcium 8.4 mg/dL (8.5-10.1); Carbon Dioxide 26.9 meq/L (21.0-32.0); Chloride 107 meq/L (98-107); Glomerular Filtration Rate 31 mL/min (>89); Glucose,Random 246 mg/dL (74-106); Potassium 4.1 meq/L (3.5-5.1); Sodium 141 meq/L (136-145)
[2018-04-18 08:37] LABS: Alkaline Phosphatase 96 U/L (45-117); Total Protein 7.4 g/dL (6.4-8.2)
[2018-04-18] MEDS ORDERED: LINAGLIPTIN 5 MG PO SCH (09:00)
--- NOTE | 2018-04-18 10:43 | P.PNWCN ---
Wound Care Nurse Consult Description: Wound consult ordered by for wound management. Communicated with: Frank RN, Recommendation: 1. Cleanse Left lower extremity wounds with normal saline only. 2. Apply Calazime to periwound 3. Apply Santyl 2mm thick to wound base and cover with saline moistened gauze secure with ABD rolled gauze/GABINO wrap. 4. Change dressing daily or as needed for dislodgement/exudate.Sign and date all dressings. 5. Follow up with out patient wound center. Additional information: Patient was seen today by automotive service writer for wound management of left lower extremity.Patient alert in bed resting in no acute distress.Dressing removed from right lower extremity with out difficulty.Wounds cleansed with normal saline pat dry.Patient has +2 pitting edema to bilateral lower extremities.Patient noted to have mixed etiology venous/diabetic ulcer.Left gaiter area has a 6.2cm 2.8cm x slough wound edges are well defined irregular in shape.Wound base is 100% loosely adhered yellow slough.Mild erythema noted to periwound scant serosanguineous exudate with faint odor.Right medial distal ankle has a 2.5cm x 5.0cm x eschar wound edges are well defined maceration noted circumferentially to intact dry brown/black eschar.Scant serous exudate noted.Patient noted to have diffuse unroofed bullas on left lower gaiter area.Wound base moist pink tissue.All wounds cleansed with normal saline pat dry Calazime cream applied to periwound for moisture control.Saline moistened gauze applied to wound bases and covered with ABD till Santyl available.Secured with rolled gauze and loose fitting GABINO wrap.Dressing signed and dated.Patient to follow up with upon discharge. Wound/Pressure Injury - Patient Status Premedicated for Pain Prior to Dressing Change: No - Wound Left anterior leg Wound Assessment: Ongoing Wound Type: Abrasion Is This a Chronic Wound: Yes Requested from Provider a Wound Care Consult: No Length: 6.2 Width: 2.8 Wound Bed Appearance: Necrotic, Yellow Surrounding Tissue Appearance: Edematous, Erythema Surrounding Tissue Temperature: Cool Drainage Description: Serosanguinous Drainage Amount: Minimal Drainage Odor: Slight Odor Dressing Status: Changed Cleansing Solution: Saline Topical: Enzymatic Debridement Ointment Primary Dressing: Gauze Pad Cover Dressing: Gauze Roll/Wrap Tape Type: Paper Left medial Leg Wound Assessment: Ongoing Is This a Chronic Wound: No Requested from Provider a Wound Care Consult: No Length: 2.5 Width: 5.0 Wound Bed Appearance: Necrotic Surrounding Tissue Temperature: Cool Drainage Description: Serosanguinous Drainage Amount: Scant Drainage Odor: No Odor Dressing Status: Changed Cleansing Solution: Saline Topical: Enzymatic Debridement Ointment Wound Packing Type: Gauze Pads Primary Dressing: Gauze Pad Cover Dressing: Gauze Roll/Wrap Wound Dressing Change Date: 04/18/18 Incision - Patient Status Premedicated for Pain Prior to Dressing Change: No
--- NOTE | 2018-04-18 13:22 | P.CONID ---
History of Present Illness Service: Infectious Disease Consult date: 04/18/18 Requesting Physician: Geovanni Shanks Reason for Consult: Evaluate patient with chronic left lower extremity wounds, history of MRSA Primary Care Provider: Zackary Chapa MD Family Provider: Zackary Chapa MD Chief Complaint: Left lower extremity injury and weakness History of Present Illness: Patient seen and examined. Records reviewed. Patient is a 68-year-old male, presented to the hospital for further evaluation of worsening generalized weakness, and poorly controlled blood sugars. Patient has known chronic left lower extremity wounds, and it has been an on and off problem for years. Since June the wound started opening up and he has one on his left ling and one on his medial ankle. He has been going to the wound care center on a weekly basis. In the last 4 weeks, he has had some graft placed on his wound every other week, the last one was last WednesdayApr 15. Patient has had weakness since Apr 13, and it has been getting worse since that he has not been able to do his usual activities, including transfers. he has not been able to use his right lower extremity prostheses because he has not been doing any form of ambulation due to the weakness. His blood sugars have also been a problem and they have been poorly controlled. He has had some low-grade temps of about 99+. He has not really noted any significant change in the discomfort and pain in his left lower extremity. He denies any respiratory complaint. He has not had any nausea or vomiting or any urinary complaints. I reviewed his records from the wound care center, and the last time he had any wound culture done that I could see in [facility] is from February 03, 2018, and his wound culture at that time grew a pansensitive pseudomonas aeruginosa and Proteus, as well as MRSA. Patient has been on and off antibiotics, and the last time he was on any antibiotics was about 3-4 weeks ago. Patient could not remember the name of the antibiotic. On presentation, highest temperature has been about 99+. He was first seen April 17, and received Dalvance. There was plans to discharge but the patient was so weak, and ended up getting admitted. His WBC is elevated. Infectious disease consultation has been requested to evaluate the patient with chronic lower extremity wound with history of MRSA. Review of Systems Constitutional: Reports fatigue, Reports fever(s), Reports weakness, Denies chills, Denies night sweats Eyes: Denies discharge, Denies dry eyes Ears, Nose, Mouth, and Throat: Denies difficulty swallowing, Denies ear discharge, Denies facial pain, Denies nasal discharge, Denies sore throat Cardiovascular: Reports leg swelling, Denies chest pain, Denies shortness of breath Respiratory: Denies chest congestion, Denies cough, Denies shortness of breath Gastrointestinal: Denies abdominal pain, Denies loose stools, Denies nausea, Denies pain with swallowing, Denies vomiting Genitourinary: Denies painful urination Musculoskeletal: Reports muscle weakness, Denies joint pain, Denies joint swelling Skin/Breast: Reports sores, Denies rash Neurologic: Denies headache(s) PMFSH - History History Provided By: Patient - Medical History Medical History: Medical History (Last Reviewed 04/18/18 @ 08:42 by Elsie Pak) Blindness of right eye CAD (coronary artery disease) CHF (congestive heart failure) Chronic wound of extremity Diabetes HTN (hypertension) Hearing deficit History of right below knee amputation Hypercholesteremia Myocardial infarct Pancreatitis, chronic Peripheral neuropathy Prostatic hyperplasia Renal infection - Surgical History Surgical History: Surgical History (Last Reviewed 04/18/18 @ 08:42 by Elsie Pak) Hx of CABG S/P BKA (below knee amputation) Status post transmetatarsal amputation of left foot - Family History Family History: Family History (Last Updated 04/17/18 @ 18:36 by Geovanni Shanks DO) Other Family history of diabetes mellitus Family history of hypertension - Tobacco History Second Hand Smoke Exposure: No Smoking Status: Never smoker - Alcohol History How Often Do You Have a Drink Containing Alcohol: Monthly or less - Substance Use History Substance History: No History of Abuse - Travel History History of Recent Travel: No Recent Travel in the [place] Within the Last 8 Weeks: No Recent Travel Out of the Country Within the Last 8 Weeks: No - Immunization History Tetanus Immunization: <5 Years Hx Influenza Vaccine This Season: Yes Medications and Allergies Active Medications: Active Medications Acetaminophen (Tylenol) 650 mg PO Q4H PRN PRN Reason: Temp > 100.4 Al Hydroxide/Mg Hydroxide (Milk Of Magnesia Liq) 30 ml PO Q12H PRN PRN Reason: Mild Constipation Amlodipine Besylate (Norvasc) 10 mg PO HS [facility] Aspirin (Ecotrin) 81 mg PO DAILY [facility] Last Admin: 08/19/18 19:07 Dose: 81 mg Bisacodyl (Dulcolax Supp) 10 mg RECTAL DAILY PRN PRN Reason: SEVERE CONSITIPATION Clonidine HCl (Catapres) 0.1 mg PO Q6H PRN PRN Reason: HYPERTENSION Collagenase (Santyl Oint) 1 applicatio TOPICAL DAILY [facility] Collagenase (Santyl Oint) 1 applicatio TOPICAL DAILY [facility] Ergocalciferol (Vitamind2) 50,000 unit PO WEEKLY [facility] Furosemide (Lasix) 20 mg PO DAILY [facility] Last Admin: 04/17/18 19:07 Dose: 20 mg Gabapentin (Neurontin) 300 mg PO BID [facility] Last Admin: 04/17/18 22:43 Dose: 300 mg Glipizide (Glucotrol) 10 mg PO BID [facility] Last Admin: 04/17/18 22:44 Dose: 10 mg Heparin Sodium (Porcine) (Heparin Inj) 5,000 units SQ Q8HR [facility] Last Admin: 04/18/18 05:31 Dose: 5,000 units Piperacillin/Tazobactam/Dextrose (Zosyn 3.375 Gm Premix) 50 mls @ 100 mls/hr IV.SIG Q8H [facility] Last Infusion: 04/18/18 04:10 Dose: Infused Ibuprofen (Motrin) 800 mg PO TID [facility] Insulin Aspart (Novolog Insulin Correctional Sugar Inj) 0 unit SQ ACHS [facility]; Protocol Last Admin: 04/17/18 22:46 Dose: 7 unit Lactulose (Lactulose Liq) 30 ml PO DAILY PRN PRN Reason: SEVERE CONSITIPATION Metoprolol Tartrate (Lopressor) 25 mg PO BID [facility] Last Admin: 04/17/18 22:44 Dose: 25 mg Morphine Sulfate (Morphine Inj) 2 mg IV.PUSH Q3H PRN PRN Reason: PAIN 3-5; IF UABLE TO TAKE PO Morphine Sulfate (Morphine Inj) 4 mg IV.PUSH Q3H PRN PRN Reason: PAIN 6-10;IF UNABLE TO TAKE PO Morphine Sulfate (Morphine Inj) 4 mg IV.PUSH Q3H PRN PRN Reason: BREAKTHROUGH PAIN Multivitamins (Theragran) 1 tab PO DAILY [facility] Naloxone HCl (Narcan Inj) 0.4 mg IV.PUSH UNSCH PRN PRN Reason: SEE LABEL COMMENTS Ondansetron HCl (Zofran Inj) 4 mg IV.PUSH Q6H PRN PRN Reason: NAUSEA OR VOMITING Last Admin: 04/17/18 20:07 Dose: 4 mg Oxycodone/Acetaminophen (Percocet 10/325 Mg) 1 tab PO Q6H PRN PRN Reason: PAIN SCALE 6 TO 10 Last Admin: 04/17/18 22:44 Dose: 1 tab Oxycodone/Acetaminophen (Percocet 5/325 Mg) 1 tab PO Q6H PRN PRN Reason: PAIN SCALE 3 TO 5 Pantoprazole Sodium (Protonix) 40 mg PO DAILY [facility] Last Admin: 04/17/18 19:07 Dose: 40 mg Patient Own Medication-( Linagliptin [ Tradjenta] 5 Mg Tablet) 1 each PO DAILY [facility] Patient Own Medication-(Lipase- Protease-Amylase 3000/9500/73361 Unit Capsule) 1 each PO BID [facility] Pravastatin Sodium (Pravachol) 40 mg PO HS [facility] Last Admin: 04/17/18 22:42 Dose: 40 mg Senna/Docusate Sodium (Yen-Colace) 1 tab PO BID [facility] Last Admin: 04/17/18 22:50 Dose: 1 tab Sennosides (Senokot) 17.2 mg PO Q12H PRN PRN Reason: Moderate Constipation Tamsulosin HCl (Flomax) 0.4 mg PO HS [facility] Last Admin: 04/17/18 19:54 Dose: 0.4 mg Temazepam (Restoril) 15 mg PO HS PRN PRN Reason: INSOMNIA Allergies Allergy/AdvReac Type Severity Reaction Status Date / Time No Known Allergies Allergy Unverified 04/17/18 09:23 Home Medications Medication Instructions Recorded Confirmed Type amlodipine 10 mg PO QPM 04/17/18 04/17/18 History aspirin [Aspir-81] 81 mg PO DAILY 04/17/18 04/17/18 History ergocalciferol (vitamin D2) 50,000 unit PO QWEEK 04/17/18 04/17/18 History furosemide 20 mg PO DAILY 04/17/18 04/17/18 History gabapentin 300 mg PO BID 04/17/18 04/17/18 History glipizide 10 mg PO BID 04/17/18 04/17/18 History ibuprofen 800 mg PO TID 04/17/18 04/17/18 History linagliptin [Tradjenta] 5 mg PO DAILY 04/17/18 04/17/18 History qoitvc-ttyfvafu-lvjezoz [Creon] 1 cap PO BID 04/17/18 04/17/18 History metoprolol tartrate 25 mg PO BID 04/17/18 04/17/18 History multivitamin 1 tab PO DAILY 04/17/18 04/17/18 History naproxen sodium [Aleve] 220 mg PO DAILY 04/17/18 04/17/18 History pantoprazole 40 mg PO DAILY 04/17/18 04/17/18 History pravastatin 40 mg PO HS 04/17/18 04/17/18 History tamsulosin 0.4 mg PO QPM 04/17/18 04/17/18 History Exam Vital signs: Vital Signs 04/17/18 14:03 04/17/18 16:00 04/17/18 17:16 Temperature Pulse Rate 90 86 90 Respiratory Rate 21 22 18 Blood Pressure 145/70 H 156/71 H 154/68 H Pulse Oximetry 96 95 94 L 04/17/18 20:00 04/17/18 20:25 04/17/18 22:04 Temperature 99.1 F Pulse Rate 81 79 Respiratory Rate 16 18 Blood Pressure 154/66 H 141/72 H Pulse Oximetry 94 L 95 94 L 04/17/18 23:38 04/18/18 04:00 04/18/18 07:54 Temperature 98.5 F 97.7 F Pulse Rate 74 68 Respiratory Rate 16 16 Blood Pressure 129/62 136/61 Pulse Oximetry 91 L 92 L 95 04/18/18 08:00 04/18/18 12:00 Temperature 98.8 F 97.7 F Pulse Rate 71 66 Respiratory Rate 20 20 Blood Pressure 163/74 H 161/73 H Pulse Oximetry 94 L 94 L Intake & Output 04/17/18 04/18/18 04/18/18 18:59 06:59 18:59 Intake Total 550 / 550 100 / 100 Balance 550 / 550 100 / 100 Weight 113.398 kg Intake: IV 550 / 550 100 / 100 Zosyn 2.25 GM Premix 50 ML @ 50 / 50 100 mls/hr IV.SIG ONCE ONE Rx#: [id number] Zosyn 3.375 GM Premix 50 ML @ 100 / 100 100 mls/hr IV.SIG Q8H [facility] Rx#: [id number] Other: Date of Last Bowel Movement 04/15/18 Narrative: Physical Examination GENERAL: Patient is an obese, well-developed male, awake and alert, not in respiratory distress. SKIN: Cool and dry. No generalized rash, no ecchymoses and no evidence of embolic lesions. HEAD: Atraumatic. Normocephalic. No temporal wasting, or tenderness. EYES: [place] conjunctiva. No petechia or hemorrhage. Pupils equal, round and reactive to light. Extraocular movements full and intact. No scleral icterus. No injection or drainage. EARS, NOSE AND THROAT: Nose without bleeding or purulent nasal discharge. No sinus tenderness. Mucous membranes pink and moist. No oral lesions noted. No exudate. No oral thrush. NECK: Trachea midline. Supple and not tender, no meningeal signs CARDIOVASCULAR: Regular rate and rhythm. No murmurs, rubs or gallops heard RESPIRATORY: Clear to auscultation. Breath sounds equal bilaterally. No rales , wheezing or rhonchi ABDOMEN: Soft, obese, non-tender, nondistended. Bowel sounds present and normoactive. Has UH. No guarding. No rebound. No organomegaly. EXTREMITIES: He is S/P RBA, with well healed stump. He is S/P LTMA with well healed stump. There has been marked improvement in the swelling in his LLE. He has 2 wounds - one on his ling and it is about 3 in x 1.5 in, with loose yellow green slough and very mild redness aroun the wound. On the medial ankle there is a wound that measures about 1.5 to 2 inch diameter with some yellow and black slough and mild periwound erythema. His whole left leg feels indurated specially posteriorly. No joint effusion, has good ROM. No calf tenderness. Well perfused and warm. NEUROLOGICAL: Awake and alert. Cranial nerves grossly intact. Motor grossly within normal limits. PSYCHIATRIC: Normal affect, calm and cooperative. LINE: No evidence of infection Results - Labs CBC & Chem 7: 04/18/18 06:59 04/18/18 06:59 Labs: Laboratory Results - last 24 hr 04/17/18 04/18/18 04/18/18 22:25 04:07 06:59 WBC 15.3 H RBC 3.87 L Hgb 10.8 L Hct 33.1 L MCV 85.4 MCH 27.9 MCHC 32.7 RDW 15.9 Plt Count 166 MPV 7.9 Neut % (Auto) 83.3 H Lymph % (Auto) 8.3 L Hawkins % (Auto) 7.3 Eos % (Auto) 0.9 Baso % (Auto) 0.2 Neut # (Auto) 12.7 H Lymph # (Auto) 1.3 Hawkins # (Auto) 1.1 H Eos # (Auto) 0.1 Baso # (Auto) 0.0 WBC Differential . Differential Comment Auto diff final PT INR Sodium Potassium Chloride Carbon Dioxide Anion Gap BUN Creatinine Estimated GFR POC Glucose 343 H 271 H Random Glucose Calcium Total Bilirubin AST ALT Alkaline Phosphatase Total Protein Albumin 04/18/18 04/18/18 04/18/18 06:59 06:59 09:35 WBC RBC Hgb Hct MCV MCH MCHC RDW Plt Count MPV Neut % (Auto) Lymph % (Auto) Hawkins % (Auto) Eos % (Auto) Baso % (Auto) Neut # (Auto) Lymph # (Auto) Hawkins # (Auto) Eos # (Auto) Baso # (Auto) WBC Differential Differential Comment PT 10.8 INR 1.1 Sodium 141 Potassium 4.1 Chloride 107 Carbon Dioxide 26.9 Anion Gap 7 BUN 28 H Creatinine 2.13 H Estimated GFR 31 L POC Glucose 246 H Random Glucose 246 H Calcium 8.4 L Total Bilirubin 0.7 AST 8 L ALT 13 Alkaline Phosphatase 96 Total Protein 7.4 Albumin 2.5 L - Imaging Venous Doppler Study 04/17/18 10:10 CONCLUSION: 1. No sonographic evidence for left lower extremity DVT. Assessment and Plan - Plan Impression Generalized weakness etiology? Chronic LLE wound with very mild cellulitis Previous PSAE, proteus and MRSA from his leg wounds last January 2018 DM, BS poorly controlled CAD CKD Recommendation UA and C/S Continue Vanco Continue Zosyn Follow C/S Wound care Follow temps Will determine need and course of Abx depending on his clinical progress and results of work-up I will follow along with you Thank you for this consultation
[2018-04-18] MEDS: Metoprolol Tartrate 25 MG Tablet PO SCH ×2 (13:56→21:35)
[2018-04-18] MEDS: Gabapentin 300 MG Capsule PO SCH ×2 (13:56→21:35)
[2018-04-18] MEDS: glipiZIDE 10 MG Tablet PO SCH ×2 (13:57→21:35)
[2018-04-18] MEDS: Senna/Docusate Sodium 8.6/50 MG Tablet PO SCH ×2 (13:58→21:36)
[2018-04-18] MEDS: Insulin NovoLOG Aspart Correctional Sugar Inj SQ SCH ×3 (14:06→20:08)
[2018-04-18] MEDS: Furosemide 20 MG Tablet PO SCH (15:36)
--- NOTE | 2018-04-18 18:03 | P.PN ---
Subjective Interval history: Patient is seen lying in bed eating lunch. He tells me that he is having some pain in his left leg however it is well controlled with current medications. Appears very frustrated. Denies chest pain or shortness of breath. No nausea vomiting or diarrhea. Physical Exam Vital signs: Vital Signs 04/17/18 20:00 04/17/18 20:25 04/17/18 22:04 Temperature 99.1 F Pulse Rate 81 79 Respiratory Rate 16 18 Blood Pressure 154/66 H 141/72 H Pulse Oximetry 94 L 95 94 L 04/17/18 23:38 04/18/18 04:00 04/18/18 07:54 Temperature 98.5 F 97.7 F Pulse Rate 74 68 Respiratory Rate 16 16 Blood Pressure 129/62 136/61 Pulse Oximetry 91 L 92 L 95 04/18/18 08:00 04/18/18 12:00 04/18/18 16:00 Temperature 98.8 F 97.7 F Pulse Rate 71 66 68 Respiratory Rate 20 20 18 Blood Pressure 163/74 H 161/73 H 131/65 Pulse Oximetry 94 L 94 L 92 L Intake & Output 04/17/18 04/18/18 04/18/18 18:59 06:59 18:59 Intake Total 550 / 550 100 / 100 740 / 740 Output Total 700 / 700 Balance 550 / 550 100 / 100 40 / 40 Weight 113.398 kg Intake: IV 550 / 550 100 / 100 Zosyn 2.25 GM Premix 50 ML @ 50 / 50 100 mls/hr IV.SIG ONCE ONE Rx#: [id number] Zosyn 3.375 GM Premix 50 ML @ 100 / 100 100 mls/hr IV.SIG Q8H [facility] Rx#: [id number] Oral 740 / 740 Output: Urine 700 / 700 Other: Date of Last Bowel Movement 04/15/18 # Bowel Movements 0 Narrative: GENERAL: Well-developed, well-nourished adult male in no obvious distress SKIN: Warm and dry. Wound to left lower extremities -dressing intact HEAD: Atraumatic. Normocephalic. CARDIOVASCULAR: Regular rate and rhythm. RESPIRATORY: No accessory muscle use. Clear to auscultation. Breath sounds equal bilaterally. GASTROINTESTINAL: Abdomen soft, non-tender, nondistended. Obese MUSCULOSKELETAL: Extremities without clubbing, cyanosis, or edema. No obvious deformities. Right below the knee amputation and left TMA with multiple wounds NEUROLOGICAL: Awake and alert. No obvious cranial nerve deficits. Motor grossly within normal limits. 4 out of 5 muscle strength in the arms and legs. Normal speech. Results - Labs CBC & Chem 7: 04/18/18 06:59 04/18/18 06:59 Laboratory Results - last 24 hr 04/17/18 04/18/18 04/18/18 22:25 04:07 06:59 WBC 15.3 H RBC 3.87 L Hgb 10.8 L Hct 33.1 L MCV 85.4 MCH 27.9 MCHC 32.7 RDW 15.9 Plt Count 166 MPV 7.9 Neut % (Auto) 83.3 H Lymph % (Auto) 8.3 L Castro % (Auto) 7.3 Eos % (Auto) 0.9 Baso % (Auto) 0.2 Neut # (Auto) 12.7 H Lymph # (Auto) 1.3 Castro # (Auto) 1.1 H Eos # (Auto) 0.1 Baso # (Auto) 0.0 WBC Differential . Differential Comment Auto diff final PT INR Sodium Potassium Chloride Carbon Dioxide Anion Gap BUN Creatinine Estimated GFR POC Glucose 343 H 271 H Random Glucose Calcium Total Bilirubin AST ALT Alkaline Phosphatase Total Protein Albumin 04/18/18 04/18/18 04/18/18 06:59 06:59 09:35 WBC RBC Hgb Hct MCV MCH MCHC RDW Plt Count MPV Neut % (Auto) Lymph % (Auto) [place] % (Auto) Eos % (Auto) Baso % (Auto) Neut # (Auto) Lymph # (Auto) Castro # (Auto) Eos # (Auto) Baso # (Auto) WBC Differential Differential Comment PT 10.8 INR 1.1 Sodium 141 Potassium 4.1 Chloride 107 Carbon Dioxide 26.9 Anion Gap 7 BUN 28 H Creatinine 2.13 H Estimated GFR 31 L POC Glucose 246 H Random Glucose 246 H Calcium 8.4 L Total Bilirubin 0.7 AST 8 L ALT 13 Alkaline Phosphatase 96 Total Protein 7.4 Albumin 2.5 L Microbiology 04/17/18 11:09 Wound - Leg Gram Stain - Final 04/17/18 11:09 Wound - Leg Wound Culture - Preliminary Group A beta (Strep pyogenes) gram negative rods 04/17/18 10:48 Blood - Peripheral Aerobic Blood Culture - Preliminary No growth in 1 day 04/17/18 10:48 Blood - Peripheral Anaerobic Blood Culture - Preliminary No growth in 1 day 04/17/18 10:53 Blood - Peripheral Aerobic Blood Culture - Preliminary No growth in 1 day 04/17/18 10:53 Blood - Peripheral Anaerobic Blood Culture - Preliminary No growth in 1 day Assessment and Plan - Plan Patient is a 68-year-old male with a past medical history of CAD, CHF , diabetes, hypertension, right BKA, left partial TMA, CO, pancreatitis and neuropathy. He follows with Dr. Mares for management of his lower extremity wounds. Presented to the emergency department after experiencing increasing weakness and pain in his left leg. 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 Generalized weakness Consult physical therapy and Occupational Therapy Consult case management for SNF placement Diabetes mellitus continue on sliding scale with Accu-Cheks before meals and at bedtime Continue on glipizide and TRADJENTA Coronary disease/CHF resume home medications continue on aspirin and furosemide Chronic pancreatitis continue on Creon and Protonix Hyperlipidemia resume home medications continue on his pravastatin Hypertension resume his amlodipine Peripheral neuropathy home medications BPH continue on Flomax GERD continue on his Protonix Coronary disease/CABG monitor for any other issues continue on his aspirin metoprolol and pravastatin and amlodipine Continue on DVT and GI prophylaxis Continue on proton pump inhibitor and subcu heparin
[2018-04-18] MEDS: amLODIPine 10 MG Tablet PO SCH (20:01)
[2018-04-19] MEDS: Heparin - SQ 10,000 UNITS/ML Vial SQ SCH ×4 (01:08→21:13)
[2018-04-19] MEDS: Insulin NovoLOG Aspart Correctional Sugar Inj SQ SCH ×5 (01:08→22:52)
[2018-04-19] MEDS: Piperacil/Tazo 3.375 GM Premix 50 ML IV.SIG SCH ×3 (05:31→21:27)
[2018-04-19] MEDS: Collagenase Oint 30 GM Tube TOPICAL SCH ×3 (05:32→16:22)
[2018-04-19] MEDS: Metoprolol Tartrate 25 MG Tablet PO SCH ×2 (08:49→22:48)
[2018-04-19] MEDS: Gabapentin 300 MG Capsule PO SCH ×2 (08:49→21:14)
[2018-04-19] MEDS: Furosemide 20 MG Tablet PO SCH (08:50)
[2018-04-19] MEDS: glipiZIDE 10 MG Tablet PO SCH ×2 (08:52→21:14)
[2018-04-19] MEDS: Senna/Docusate Sodium 8.6/50 MG Tablet PO SCH ×2 (08:53→21:14)
[2018-04-19 10:40] LABS: Baso % (Auto) 0.2 % (0.0-2.0); Eos # (Auto) 0.6 th/mm3 (0.0-0.4); Eos % (Auto) 3.8 % (0.0-4.0); Hematocrit 34.1 % (39.0-51.0); Hemoglobin 11.2 gm/dL (13.0-17.0); Lymph # (Auto) 1.7 th/mm3 (1.0-4.8); Lymph % (Auto) 10.3 % (9.0-44.0); Mean Corpuscular HGB Conc 32.9 % (32.0-36.0); Mean Corpuscular Hemoglobin 27.7 pg (27.0-34.0); Mean Corpuscular Volume 84.3 fL (80.0-100.0); Mean Platelet Volume 7.9 fL (7.0-11.0); Mono # (Auto) 1.1 th/mm3 (0.0-0.9); Mono % (Auto) 6.2 % (0.0-8.0); Neut # (Auto) 13.5 th/mm3 (1.8-7.7); Neut % (Auto) 79.5 % (16.0-70.0); Platelet Count 200 th/mm3 (150-450); Red Blood Count 4.04 mil/mm3 (4.50-5.90); Red Cell Distribution Width 15.9 % (11.6-17.2)
[2018-04-19 10:51] LABS: Albumin 2.5 g/dL (3.4-5.0); Anion Gap 11 meq/L (5-15); Aspartate Aminotransferase 9 U/L (15-37); Blood Urea Nitrogen 31 mg/dL (7-18); Calcium 8.8 mg/dL (8.5-10.1); Carbon Dioxide 25.3 meq/L (21.0-32.0); Chloride 106 meq/L (98-107); Glomerular Filtration Rate 29 mL/min (>89); Glucose,Random 168 mg/dL (74-106); Sodium 142 meq/L (136-145)
[2018-04-19 10:57] LABS: Alanine Aminotransferase 10 U/L (12-78); Alkaline Phosphatase 103 U/L (45-117); Total Protein 7.8 g/dL (6.4-8.2)
--- NOTE | 2018-04-19 15:16 | P.PN ---
Subjective Interval history: Follow-up for left lower extremity wounds, generalized weakness. Patient reports continued improvement of his left lower extremity wounds with decreased swelling and erythema. Denies any fevers or chills. States he still feels generally fatigued and weak, agrees to rehab placement. He has no other medical complaints at this time including no headache, lightheadedness, chest pain, shortness of breath, or abdominal pain. He has not had a bowel movement since his arrival, but states this is normal for him to go a few days without a bowel movement. Denies any nausea or vomiting. Tolerating oral intake. Physical Exam Vital signs: Vital Signs 04/18/18 16:00 04/19/18 03:10 04/19/18 08:00 Temperature 98.1 F 98.0 F Pulse Rate 68 61 64 Respiratory Rate 18 22 18 Blood Pressure 131/65 111/58 L 135/62 Pulse Oximetry 92 L 95 94 L 04/19/18 12:00 Temperature 97.7 F Pulse Rate 65 Respiratory Rate 16 Blood Pressure 130/78 Pulse Oximetry 93 L Intake & Output 04/18/18 04/19/18 04/19/18 18:59 06:59 18:59 Intake Total 740 / 740 100 / 100 Output Total 700 / 700 Balance 40 / 40 100 / 100 Intake: IV 100 / 100 Zosyn 3.375 GM Premix 50 ML @ 100 / 100 100 mls/hr IV.SIG Q8H [facility] Rx#: [id number] Oral 740 / 740 Output: Urine 700 / 700 Other: # Bowel Movements 0 Narrative: GENERAL: Well-nourished, well-developed male patient in [facility]. SKIN: Warm and dry. 2 LLE wounds with dressing in place, CDI (wounds not visualized today), with surrounding induration/erythema/edema that extends up the calf and into the foot. HEENT: Normocephalic. Atraumatic. Pupils equal and round. Mucous membranes pink and moist. NECK: Supple. Trachea midline. CARDIOVASCULAR: Regular rate and rhythm. No murmur appreciated. RESPIRATORY: No accessory muscle use. Clear to auscultation. Breath sounds equal bilaterally. GASTROINTESTINAL: Abdomen soft, non-tender, nondistended. Normoactive bowel sounds x4. 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 Left TMA with well- healed stump, no erythema/edema/drainage. See skin assessment above for LLE wounds. NEUROLOGICAL: Awake and alert. No obvious cranial nerve deficits. Motor grossly within normal limits. Moving all extremities spontaneously. Normal speech. PSYCHIATRIC: Appropriate mood and affect; insight and judgment normal. Results - Labs CBC & Chem 7: 04/19/18 10:06 04/19/18 10:06 Laboratory Results - last 24 hr 04/18/18 04/18/18 04/18/18 13:39 18:59 21:54 WBC RBC Hgb Hct MCV MCH MCHC RDW Plt Count MPV Neut % (Auto) Lymph % (Auto) [place] % (Auto) Eos % (Auto) Baso % (Auto) Neut # (Auto) Lymph # (Auto) [place] # (Auto) Eos # (Auto) Baso # (Auto) WBC Differential Differential Comment Sodium Potassium Chloride Carbon Dioxide Anion Gap BUN Creatinine Estimated GFR POC Glucose 229 H 200 H 190 H Random Glucose Calcium Total Bilirubin AST ALT Alkaline Phosphatase Total Protein Albumin 04/19/18 04/19/18 04/19/18 00:45 08:19 10:06 WBC 17.0 H RBC 4.04 L Hgb 11.2 L Hct 34.1 L MCV 84.3 MCH 27.7 MCHC 32.9 RDW 15.9 Plt Count 200 MPV 7.9 Neut % (Auto) 79.5 H Lymph % (Auto) 10.3 [place] % (Auto) 6.2 Eos % (Auto) 3.8 Baso % (Auto) 0.2 Neut # (Auto) 13.5 H Lymph # (Auto) 1.7 [place] # (Auto) 1.1 H Eos # (Auto) 0.6 H Baso # (Auto) 0.0 WBC Differential . Differential Comment Auto diff final Sodium Potassium Chloride Carbon Dioxide Anion Gap BUN Creatinine Estimated GFR POC Glucose 170 H 154 H Random Glucose Calcium Total Bilirubin AST ALT Alkaline Phosphatase Total Protein Albumin 04/19/18 04/19/18 10:06 13:06 WBC RBC Hgb Hct MCV MCH MCHC RDW Plt Count MPV Neut % (Auto) Lymph % (Auto) [place] % (Auto) Eos % (Auto) Baso % (Auto) Neut # (Auto) Lymph # (Auto) [place] # (Auto) Eos # (Auto) Baso # (Auto) WBC Differential Differential Comment Sodium 142 Potassium 4.0 Chloride 106 Carbon Dioxide 25.3 Anion Gap 11 BUN 31 H Creatinine 2.28 H Estimated GFR 29 L POC Glucose 185 H Random Glucose 168 H Calcium 8.8 Total Bilirubin 0.6 AST 9 L ALT 10 L Alkaline Phosphatase 103 Total Protein 7.8 Albumin 2.5 L Microbiology 04/17/18 10:48 Blood - Peripheral Aerobic Blood Culture - Preliminary No growth in 2 days 04/17/18 10:48 Blood - Peripheral Anaerobic Blood Culture - Preliminary No growth in 2 days 04/17/18 10:53 Blood - Peripheral Aerobic Blood Culture - Preliminary No growth in 2 days 04/17/18 10:53 Blood - Peripheral Anaerobic Blood Culture - Preliminary No growth in 2 days 04/17/18 11:09 Wound - Leg Gram Stain - Final 04/17/18 11:09 Wound - Leg Wound Culture - Final Group A beta Strep Klebsiella pneumoniae ESBL pos Pseudomonas aeruginosa - Imaging Venous Doppler Study 04/17/18 10:10 CONCLUSION: 1. No sonographic evidence for left lower extremity DVT. Assessment and Plan - Plan 68-year-old male with a past medical history of CAD, CHF, DM, HTN, right BKA, left TMA, [place], pancreatitis and neuropathy, presents with increasing pain/swelling/weakness due to worsening chronic LLE wounds. Follows with Dr. Velazco for wound management. Acute Cellulitis of Left lower extremity wounds: hx of MRSA. Patient is diabetic. 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 -Consult PT/OT, recommending rehab -Consult case management for SNF placement Diabetes mellitus: chronic -continue on sliding scale with Accu-Cheks -Continue on glipizide and Tradjenta CAD/CHF/HTN/HLD: chronic, no complaints of chest pain -resume home medications including aspirin, lasix 20mg daily, metoprolol, statin, norvasc -Monitor BP, adjust antihypertensives as needed Chronic pancreatitis: chronic, no GI complaints -continue on Creon and Protonix Peripheral neuropathy: chronic -continue patient's gabapentin BPH: chronic -continue on Flomax GERD: chronic -continue on Protonix DVT Prophylaxis: Heparin sq Discharge Planning: Discharge pending antibiotic recommendations from ID, and acceptance to SNF.
[2018-04-19] MEDS: amLODIPine 10 MG Tablet PO SCH (22:47)
[2018-04-19 23:20] LABS: Amorphous Sediment,Urine Rare /hpf; Bacteria,Urine Rare /hpf; Bilirubin,Urine Negative (Negative); Clarity,Urine Cloudy (Clear); Color,Urine Yellow (Yellw/Straw); Glucose,Urine (UA) Negative (Negative); Hyaline Casts,Urine 4 /lpf (0-3); Leukocyte Esterase,Urine Negative (Negative); Mucus,Urine Few /lpf (Occasional); Nitrite,Urine Negative (Negative); Specific Gravity,Urine 1.017 (1.002-1.035); Squamous Epithelial Cell,Urine 1 /hpf (0-5)
[2018-04-20] MEDS: Piperacil/Tazo 3.375 GM Premix 50 ML IV.SIG SCH ×2 (04:09→12:23)
[2018-04-20] MEDS: Heparin - SQ 10,000 UNITS/ML Vial SQ SCH ×3 (05:58→21:25)
[2018-04-20 06:00] LABS: Baso # (Auto) 0.1 th/mm3 (0.0-0.2); Baso % (Auto) 0.4 % (0.0-2.0); Eos # (Auto) 0.6 th/mm3 (0.0-0.4); Eos % (Auto) 4.6 % (0.0-4.0); Hematocrit 30.9 % (39.0-51.0); Hemoglobin 10.1 gm/dL (13.0-17.0); Lymph # (Auto) 1.8 th/mm3 (1.0-4.8); Lymph % (Auto) 14.7 % (9.0-44.0); Mean Corpuscular HGB Conc 32.6 % (32.0-36.0); Mean Corpuscular Hemoglobin 27.2 pg (27.0-34.0); Mean Corpuscular Volume 83.5 fL (80.0-100.0); Mean Platelet Volume 7.6 fL (7.0-11.0); Mono # (Auto) 0.9 th/mm3 (0.0-0.9); Mono % (Auto) 7.6 % (0.0-8.0); Neut # (Auto) 8.9 th/mm3 (1.8-7.7); Neut % (Auto) 72.7 % (16.0-70.0); Platelet Count 202 th/mm3 (150-450); Red Cell Distribution Width 15.8 % (11.6-17.2); White Blood Count 12.2 th/mm3 (4.0-11.0)
[2018-04-20 06:26] LABS: Calcium 8.3 mg/dL (8.5-10.1); Carbon Dioxide 26.4 meq/L (21.0-32.0); Potassium 3.8 meq/L (3.5-5.1)
[2018-04-20] MEDS: glipiZIDE 10 MG Tablet PO SCH ×2 (09:36→21:24)
[2018-04-20] MEDS: Furosemide 20 MG Tablet PO SCH (09:36)
[2018-04-20] MEDS: Gabapentin 300 MG Capsule PO SCH ×2 (09:36→21:24)
[2018-04-20] MEDS: Metoprolol Tartrate 25 MG Tablet PO SCH ×2 (09:36→21:24)
[2018-04-20] MEDS: Senna/Docusate Sodium 8.6/50 MG Tablet PO SCH ×2 (09:37→21:25)
[2018-04-20] MEDS: Collagenase Oint 30 GM Tube TOPICAL SCH ×2 (09:38)
[2018-04-20] MEDS: Insulin NovoLOG Aspart Correctional Sugar Inj SQ SCH ×4 (09:38→21:33)
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
--- NOTE | 2018-04-20 14:40 | P.PNID ---
Subjective Remarks: Patient is a 68-year-old male, presented to the hospital for further evaluation of worsening generalized weakness, and poorly controlled blood sugars. Patient has known chronic left lower extremity wounds, and it has been an on and off problem for years. Since June the wound started opening up and he has one on his left ling and one on his medial ankle. He has been going to the wound care center on a weekly basis. In the last 4 weeks, he has had some graft placed on his wound every other week, the last one was last WednesdayApr 15. Patient has had weakness since Apr 13, and it has been getting worse since that he has not been able to do his usual activities, including transfers. he has not been able to use his right lower extremity prostheses because he has not been doing any form of ambulation due to the weakness. His blood sugars have also been a problem and they have been poorly controlled. He has had some low-grade temps of about 99+. He has not really noted any significant change in the discomfort and pain in his left lower extremity. He denies any respiratory complaint. He has not had any nausea or vomiting or any urinary complaints. I reviewed his records from the wound care center, and the last time he had any wound culture done that I could see in [facility] is from February 03, 2018, and his wound culture at that time grew a pansensitive pseudomonas aeruginosa and Proteus, as well as MRSA. Patient has been on and off antibiotics, and the last time he was on any antibiotics was about 3-4 weeks ago. Patient could not remember the name of the antibiotic. On presentation, highest temperature has been about 99+. He was first seen April 17, and received Dal[place]. There was plans to discharge but the patient was so weak, and ended up getting admitted. His WBC is elevated. Infectious disease consultation has been requested to evaluate the patient with chronic lower extremity wound with history of MRSA. Notes reviewed Temps ok Still weak but better WBC improving Wound C/S PSAE, Kleb ESBL and GAS Antibiotics: Zosyn Lines: PIV Past Medical History: Blindness of right eye CAD (coronary artery disease) CHF (congestive heart failure) Chronic wound of extremity Diabetes HTN (hypertension) Hearing deficit History of right below knee amputation Hypercholesteremia Myocardial infarct Pancreatitis, chronic Peripheral neuropathy Prostatic hyperplasia Renal infection Hx of CABG S/P BKA (below knee amputation) Status post transmetatarsal amputation of left foot Allergies/Adverse Reactions: Allergies No Known Allergies Allergy (Unverified 04/17/18 09:23) Objective Vital Signs 04/19/18 16:00 04/19/18 22:40 04/20/18 00:00 Temperature 97.7 F 97.5 F L 98 F Pulse Rate 67 64 66 Respiratory Rate 17 16 18 Blood Pressure 139/65 130/60 132/66 Pulse Oximetry 95 96 04/20/18 03:45 04/20/18 08:00 04/20/18 12:00 Temperature 98 F 97.6 F 97.9 F Pulse Rate 69 70 68 Respiratory Rate 16 16 17 Blood Pressure 128/68 138/65 142/65 H Pulse Oximetry 98 96 93 L Intake & Output 04/19/18 04/20/18 04/20/18 18:59 06:59 18:59 Intake Total 240 / 240 1425 / 1425 Output Total 300 / 300 800 / 800 Balance -60 / -60 625 / 625 Weight 114 kg Intake: IV 150 / 150 Zosyn 3.375 GM Premix 50 ML @ 150 / 150 100 mls/hr IV.SIG Q8H [facility] Rx#: [id number] Oral 240 / 240 1275 / 1275 Output: Urine 300 / 300 800 / 800 Other: Date of Last Bowel Movement 04/19/18 # Bowel Movements 0 04/17/18 10:48 Blood - Peripheral Aerobic Blood Culture - Preliminary No growth in 3 days 04/17/18 10:48 Blood - Peripheral Anaerobic Blood Culture - Preliminary No growth in 3 days 04/17/18 10:53 Blood - Peripheral Aerobic Blood Culture - Preliminary No growth in 3 days 04/17/18 10:53 Blood - Peripheral Anaerobic Blood Culture - Preliminary No growth in 3 days 04/17/18 11:09 Wound - Leg Gram Stain - Final 04/17/18 11:09 Wound - Leg Wound Culture - Final Group A beta Strep Klebsiella pneumoniae ESBL pos Pseudomonas aeruginosa Lab - Hematology Results 04/19/18 04/20/18 10:06 05:42 WBC 17.0 H 12.2 H RBC 4.04 L 3.70 L Hgb 11.2 L 10.1 L Hct 34.1 L 30.9 L MCV 84.3 83.5 MCH 27.7 27.2 MCHC 32.9 32.6 RDW 15.9 15.8 Plt Count 200 202 MPV 7.9 7.6 Neut % (Auto) 79.5 H 72.7 H Lymph % (Auto) 10.3 14.7 [place] % (Auto) 6.2 7.6 Eos % (Auto) 3.8 4.6 H Baso % (Auto) 0.2 0.4 Neut # (Auto) 13.5 H 8.9 H Lymph # (Auto) 1.7 1.8 [place] # (Auto) 1.1 H 0.9 Eos # (Auto) 0.6 H 0.6 H Baso # (Auto) 0.0 0.1 WBC Differential . . Differential Comment Auto diff final Auto diff final Lab - Chemistry Results 04/18/18 04/18/18 04/18/18 13:39 18:59 21:54 Sodium Potassium Chloride Carbon Dioxide Anion Gap BUN Creatinine Estimated GFR POC Glucose 229 H 200 H 190 H Random Glucose Calcium Total Bilirubin AST ALT Alkaline Phosphatase Total Protein Albumin 04/19/18 04/19/18 04/19/18 00:45 08:19 10:06 Sodium 142 Potassium 4.0 Chloride 106 Carbon Dioxide 25.3 Anion Gap 11 BUN 31 H Creatinine 2.28 H Estimated GFR 29 L POC Glucose 170 H 154 H Random Glucose 168 H Calcium 8.8 Total Bilirubin 0.6 AST 9 L ALT 10 L Alkaline Phosphatase 103 Total Protein 7.8 Albumin 2.5 L 04/19/18 04/19/18 04/19/18 13:06 16:53 21:13 Sodium Potassium Chloride Carbon Dioxide Anion Gap BUN Creatinine Estimated GFR POC Glucose 185 H 178 H 217 H Random Glucose Calcium Total Bilirubin AST ALT Alkaline Phosphatase Total Protein Albumin 04/20/18 04/20/18 04/20/18 04:06 05:42 07:54 Sodium 143 Potassium 3.8 Chloride 109 H Carbon Dioxide 26.4 Anion Gap 8 BUN 33 H Creatinine 2.37 H Estimated GFR 27 L POC Glucose 223 H 191 H Random Glucose 177 H Calcium 8.3 L Total Bilirubin AST ALT Alkaline Phosphatase Total Protein Albumin 04/20/18 11:16 Sodium Potassium Chloride Carbon Dioxide Anion Gap BUN Creatinine Estimated GFR POC Glucose 222 H Random Glucose Calcium Total Bilirubin AST ALT Alkaline Phosphatase Total Protein Albumin Imaging: ITS Impressions Venous Doppler Study 04/17/18 10:10 CONCLUSION: 1. No sonographic evidence for left lower extremity DVT. Physical Exam: GENERAL: awake and alert, not in respiratory distress. Up in chair SKIN: Cool and dry. No generalized rash HEAD: Atraumatic. Normocephalic. No temporal wasting, or tenderness. EYES: [place] conjunctiva. No petechia or hemorrhage. Pupils equal, round and reactive to light. No scleral icterus. EARS, NOSE AND THROAT: Nose without bleeding or purulent nasal discharge. No sinus tenderness. Mucous membranes pink and moist. No oral lesions noted. NECK: Trachea midline. Supple and not tender, no meningeal signs CARDIOVASCULAR: Regular rate and rhythm. No murmurs, rubs or gallops heard RESPIRATORY: Clear to auscultation. Breath sounds equal bilaterally. No rales , wheezing or rhonchi ABDOMEN: Soft, obese, non-tender, nondistended. Bowel sounds present and normoactive. Has UH. No guarding. No rebound. No organomegaly. EXTREMITIES: He is S/P RBA, with well healed stump. He is S/P LTMA with well healed stump. There has been marked improvement in the swelling in his LLE. He has 2 wounds - one on his ling and it is about 3 in x 1.5 in, with loose yellow green slough and very mild redness around the wound. On the medial ankle there is a wound that measures about 1.5 to 2 inch diameter with some yellow and black slough and mild periwound erythema. His whole left leg feels indurated specially posteriorly. No joint effusion, has good ROM. No calf tenderness. Well perfused and warm. NEUROLOGICAL: Awake and alert. Cranial nerves grossly intact. Motor grossly within normal limits. PSYCHIATRIC: Normal affect, calm and cooperative. LINE: No evidence of infection Assessment and Plan - Plan Impression Generalized weakness etiology? Chronic LLE wound with very mild cellulitis Previous PSAE, proteus and MRSA from his leg wounds last January 2018 DM, BS poorly controlled CAD CKD Recommendation Change Abx to Levaquiin - will cover all pathogens isolated from his wound - pkan 10 days Wound care Clinically stable from ID standpoint Agree with rehab Explained plan to the patient
[2018-04-20] MEDS ORDERED: levoFLOXacin 250 MG Tablet PO SCH (15:00)
[2018-04-20] MEDS: amLODIPine 10 MG Tablet PO SCH (21:24)
[2018-04-20] MEDS: oxyCODONE/Acetaminophen 10/325 Tablet PO PRN (21:25)
[2018-04-21] MEDS: Heparin - SQ 10,000 UNITS/ML Vial SQ SCH ×2 (05:45→13:32)
[2018-04-21] MEDS: Senna/Docusate Sodium 8.6/50 MG Tablet PO SCH (09:04)
[2018-04-21] MEDS: glipiZIDE 10 MG Tablet PO SCH (09:07)
[2018-04-21] MEDS: Furosemide 20 MG Tablet PO SCH (09:07)
[2018-04-21] MEDS: Collagenase Oint 30 GM Tube TOPICAL SCH ×2 (09:08)
[2018-04-21] MEDS: Insulin NovoLOG Aspart Correctional Sugar Inj SQ SCH ×2 (09:08→13:32)
[2018-04-21] MEDS: Gabapentin 300 MG Capsule PO SCH (09:08)
[2018-04-21] MEDS: Metoprolol Tartrate 25 MG Tablet PO SCH (09:08)
--- NOTE | 2018-04-21 10:22 | P.CONWOU ---
History of Present Illness Primary Care Provider: Zackary Chapa MD Family Provider: Zackary Chapa MD Chief Complaint: Left lower extremity injury and weakness PMFSH - History History Provided By: Patient - Medical History Medical History: Medical History (Last Reviewed 04/20/18 @ 09:56 by Madeleine Kitchen) BPH (benign prostatic hyperplasia) Blindness of right eye CAD (coronary artery disease) CHF (congestive heart failure) Chronic kidney disease Chronic wound of extremity Diabetes HTN (hypertension) Hearing deficit History of right below knee amputation Hypercholesteremia Myocardial infarct Pancreatitis, chronic Peripheral neuropathy - Surgical History Surgical History: Surgical History (Last Reviewed 04/20/18 @ 09:56 by Madeleine Kitchen) Hx of CABG S/P BKA (below knee amputation) Status post transmetatarsal amputation of left foot - Family History Family History: Family History (Last Updated 04/17/18 @ 18:36 by Geovanni Shanks DO) Other Family history of diabetes mellitus Family history of hypertension - Tobacco History Second Hand Smoke Exposure: No Smoking Status: Never smoker - Alcohol History How Often Do You Have a Drink Containing Alcohol: Monthly or less - Substance Use History Substance History: No History of Abuse - Travel History History of Recent Travel: No Recent Travel in the [place] Within the Last 8 Weeks: No Recent Travel Out of the Country Within the Last 8 Weeks: No - Immunization History Tetanus Immunization: <5 Years Hx Influenza Vaccine This Season: Yes Medications and Allergies Active Medications: Active Medications Acetaminophen (Tylenol) 650 mg PO Q4H PRN PRN Reason: Temp > 100.4 Al Hydroxide/Mg Hydroxide (Milk Of Magnjes Liq) 30 ml PO Q12H PRN PRN Reason: Mild Constipation Amlodipine Besylate (Norvasc) 10 mg PO HS [facility] Last Admin: 04/20/18 21:24 Dose: 10 mg Aspirin (Ecotrin) 81 mg PO DAILY [facility] Last Admin: 04/21/18 09:07 Dose: 81 mg Bisacodyl (Dulcolax Supp) 10 mg RECTAL DAILY PRN PRN Reason: SEVERE CONSITIPATION Clonidine HCl (Catapres) 0.1 mg PO Q6H PRN PRN Reason: HYPERTENSION Collagenase (Santyl Oint) 1 applicatio TOPICAL DAILY [facility] Last Admin: 04/21/18 09:08 Dose: Not Given Collagenase (Santyl Oint) 1 applicatio TOPICAL DAILY [facility] Last Admin: 04/21/18 09:08 Dose: 1 applicatio Ergocalciferol (Vitamind2) 50,000 unit PO WEEKLY [facility] Furosemide (Lasix) 20 mg PO DAILY [facility] Last Admin: 04/21/18 09:07 Dose: 20 mg Gabapentin (Neurontin) 300 mg PO BID [facility] Last Admin: 04/21/18 09:08 Dose: 300 mg Glipizide (Glucotrol) 10 mg PO BID [facility] Last Admin: 04/21/18 09:07 Dose: 10 mg Heparin Sodium (Porcine) (Heparin Inj) 5,000 units SQ Q8HR [facility] Last Admin: 04/21/18 05:45 Dose: 5,000 units Ibuprofen (Motrin) 800 mg PO TID [facility] Last Admin: 04/21/18 09:07 Dose: 800 mg Insulin Aspart (Novolog Insulin Correctional Sugar Inj) 0 unit SQ ACHS [facility]; Protocol Last Admin: 04/21/18 09:08 Dose: 1 unit Lactulose (Lactulose Liq) 30 ml PO DAILY PRN PRN Reason: SEVERE CONSITIPATION Levofloxacin (Levaquin) 250 mg PO Q48H [facility] Stop: 05/04/18 14:59 Last Admin: 04/20/18 16:40 Dose: 250 mg Metoprolol Tartrate (Lopressor) 25 mg PO BID [facility] Last Admin: 04/21/18 09:08 Dose: 25 mg Morphine Sulfate (Morphine Inj) 2 mg IV.PUSH Q3H PRN PRN Reason: PAIN 3-5; IF UABLE TO TAKE PO Morphine Sulfate (Morphine Inj) 4 mg IV.PUSH Q3H PRN PRN Reason: PAIN 6-10;IF UNABLE TO TAKE PO Morphine Sulfate (Morphine Inj) 4 mg IV.PUSH Q3H PRN PRN Reason: BREAKTHROUGH PAIN Multivitamins (Theragran) 1 tab PO DAILY [facility] Last Admin: 04/21/18 09:08 Dose: 1 tab Naloxone HCl (Narcan Inj) 0.4 mg IV.PUSH UNSCH PRN PRN Reason: SEE LABEL COMMENTS Ondansetron HCl (Zofran Inj) 4 mg IV.PUSH Q6H PRN PRN Reason: NAUSEA OR VOMITING Last Admin: 04/17/18 20:07 Dose: 4 mg Oxycodone/Acetaminophen (Percocet 10/325 Mg) 1 tab PO Q6H PRN PRN Reason: PAIN SCALE 6 TO 10 Last Admin: 04/20/18 21:25 Dose: 1 tab Oxycodone/Acetaminophen (Percocet 5/325 Mg) 1 tab PO Q6H PRN PRN Reason: PAIN SCALE 3 TO 5 Pantoprazole Sodium (Protonix) 40 mg PO DAILY [facility] Last Admin: 04/21/18 09:07 Dose: 40 mg Patient Own Medication-( Linagliptin [ Tradjenta] 5 Mg Tablet) 1 each PO DAILY [facility] Patient Own Medication-(Lipase- Protease-Amylase 3000/9500/21254 Unit Capsule) 1 each PO BID [facility] Pravastatin Sodium (Pravachol) 40 mg PO HS [facility] Last Admin: 04/20/18 21:24 Dose: 40 mg Senna/Docusate Sodium (Yen-Colace) 1 tab PO BID [facility] Last Admin: 04/21/18 09:04 Dose: Not Given Sennosides (Senokot) 17.2 mg PO Q12H PRN PRN Reason: Moderate Constipation Tamsulosin HCl (Flomax) 0.4 mg PO HS [facility] Last Admin: 04/20/18 21:24 Dose: 0.4 mg Temazepam (Restoril) 15 mg PO HS PRN PRN Reason: INSOMNIA Allergies Allergy/AdvReac Type Severity Reaction Status Date / Time No Known Allergies Allergy Unverified 04/17/18 09:23 Home Medications Medication Instructions Recorded Confirmed Type amlodipine 10 mg PO QPM 04/17/18 04/17/18 History aspirin [Aspir-81] 81 mg PO DAILY 04/17/18 04/17/18 History ergocalciferol (vitamin D2) 50,000 unit PO QWEEK 04/17/18 04/17/18 History furosemide 20 mg PO DAILY 04/17/18 04/17/18 History gabapentin 300 mg PO BID 04/17/18 04/17/18 History glipizide 10 mg PO BID 04/17/18 04/17/18 History ibuprofen 800 mg PO TID 04/17/18 04/17/18 History linagliptin [Tradjenta] 5 mg PO DAILY 04/17/18 04/17/18 History feeddg-[id number] [Creon] 1 cap PO BID 04/17/18 04/17/18 History metoprolol tartrate 25 mg PO BID 04/17/18 04/17/18 History multivitamin 1 tab PO DAILY 04/17/18 04/17/18 History naproxen sodium [Aleve] 220 mg PO DAILY 04/17/18 04/17/18 History pantoprazole 40 mg PO DAILY 04/17/18 04/17/18 History pravastatin 40 mg PO HS 04/17/18 04/17/18 History tamsulosin 0.4 mg PO QPM 04/17/18 04/17/18 History Physical Exam Vital signs: Vital Signs 04/20/18 12:00 04/20/18 16:00 04/20/18 19:24 Temperature 97.9 F 97.5 F L 98.2 F Pulse Rate 68 65 70 Respiratory Rate 17 12 20 Blood Pressure 142/65 H 133/64 150/73 H Pulse Oximetry 93 L 95 95 04/20/18 23:31 04/21/18 00:26 04/21/18 01:15 Temperature 98.1 F Pulse Rate 68 60 Respiratory Rate 20 20 Blood Pressure 143/83 H Pulse Oximetry 93 L 04/21/18 03:14 04/21/18 04:00 04/21/18 08:00 Temperature 97.9 F 97.7 F Pulse Rate 95 H 64 69 Respiratory Rate 20 18 Blood Pressure 116/57 L 130/63 Pulse Oximetry 94 L 93 L Intake & Output 04/20/18 04/21/18 04/21/18 18:59 06:59 18:59 Intake Total 50 / 50 Output Total 1200 / 1200 200 / 200 Balance -1200 / -1200 -150 / -150 Weight 112.2 kg Intake: IV 50 / 50 Zosyn 3.375 GM Premix 50 ML @ 50 / 50 100 mls/hr IV.SIG Q8H [facility] Rx#: [id number] Output: Urine 1200 / 1200 200 / 200 Other: # Voids 2 Date of Last Bowel Movement 04/19/18 04/20/18 04/19/18 Wound/Pressure Injury - Patient Status Premedicated for Pain Prior to Dressing Change: No - Wound Right Lower Leg Wound Type: Pressure Injury Is This a Chronic Wound: Yes Wound Bed Appearance: Peeling Skin, Red, Yellow Surrounding Tissue Appearance: Edematous, Erythema, Taut Surrounding Tissue Temperature: Warm Drainage Description: Serous Drainage Amount: Scant Drainage Odor: Slight Odor Dressing Status: Changed Cleansing Solution: wound getachew Primary Dressing: Non-Adherent Gauze Pad Cover Dressing: Gauze Roll/Wrap Tape Type: Transparent Right Gluteal Cleft Wound Type: Pressure Injury Is This a Chronic Wound: Yes Wound Bed Appearance: [place] Surrounding Tissue Appearance: [place] Surrounding Tissue Temperature: Warm Drainage Description: Serous Drainage Amount: Scant Dressing Status: Open to Air Left Lower Leg Wound Assessment: Admission Wound Type: Lesion Left anterior leg Wound Assessment: Ongoing Wound Type: Abrasion Is This a Chronic Wound: Yes Requested from Provider a Wound Care Consult: No Length: 6.2 Width: 2.8 Wound Bed Appearance: Necrotic Surrounding Tissue Appearance: Edematous, Erythema Surrounding Tissue Temperature: Cool Drainage Description: Serosanguinous Drainage Amount: Minimal Drainage Odor: No Odor Dressing Status: Changed Cleansing Solution: Saline Topical: Enzymatic Debridement Ointment Wound Packing Type: Gauze Pads Primary Dressing: Gauze Pad Cover Dressing: Gauze Roll/Wrap Tape Type: Paper Left medial Leg Wound Assessment: Ongoing Wound Type: Lesion Is This a Chronic Wound: No Requested from Provider a Wound Care Consult: Yes Length: 2.5 Width: 5.0 Wound Bed Appearance: Edematous Surrounding Tissue Temperature: Cool Drainage Description: Serosanguinous Drainage Amount: Scant Drainage Odor: No Odor Dressing Status: Dry & Intact Cleansing Solution: Saline Topical: Enzymatic Debridement Ointment Wound Packing Type: Gauze Pads Primary Dressing: Absorbant Pad Cover Dressing: Gauze Roll/Wrap Wound Dressing Change Date: 04/18/18 Incision - Patient Status Premedicated for Pain Prior to Dressing Change: No Assessment and Plan - Assessment (1) Ulcer of left ankle Code(s): L97.329 - Non-pressure chronic ulcer of left ankle with unspecified severity Status: Acute Plan: Wound dimensions this week: 3.9cmx5.2cmx0.4cm. Wound is a diabetic ulcer (2) Ulcer of left lower leg Code(s): L97.929 - Non-pressure chronic ulcer of unspecified part of left lower leg with unspecified severity Status: Acute Plan: Wound dimesions this week [id number] (3) Venous stasis dermatitis Code(s): I87.2 - Venous insufficiency (chronic) (peripheral) Status: Acute Plan: there are 5 partial thickness draining ulcerations that coalesce. Will check SARA to ascertain if he can tolerate compression. the dimensions of thse five were 5x3
--- NOTE | 2018-04-21 12:46 | ECHRPT ---
EXAM DATE: 04/21/2018 12:13 PM EDT AGE/SEX: 68 years / Male INDICATIONS: Infected stasis ulcer CLINICAL DATA: This is the patient's initial encounter. Patient reports that signs and symptoms have been present for 2 weeks and indicates a pain score of 5/10. MEDICAL/SURGICAL HISTORY: . Blindness right eye, BPH, CAD, CHF, CKD, chronic wound of extremity , DM, hearing deficit, right BKA, HTN, hypercholesterolemia, TN, chronic pancreatitis, peripheral justyna ropathy . CABG, R BKA, transmetatarsal amputation of left foot COMPARISON: No prior exams available for comparison. TECHNIQUE: Five-station segmental examination of the lower extremities was performed. Pulsed-cuff wa veform tracings and pressures were recorded. Ankle-brachial indices and toe-brachial indices were annabel culated. PRESSURES (mmHg): Brachial (arm) : RIGHT: IV SITE, LEFT: 114 Ankle : RIGHT: BKA, LEFT: 98 SARA : RIGHT: BKA, LEFT: 0.86 TBI : RIGHT: BKA, LEFT: AMPUTEE FINDINGS: Pulsed-Cuff Waveform: Monophasic tracing. Other: None. CONCLUSION: Mildly diminished left ankle index Electronically signed by: Josue Jain MD 04/21/2018 12:45 PM EDT
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
--- NOTE | 2018-04-21 13:03 | P.DS ---
Date of admission: 04/17/18 18:13 Primary care physician: Zackary Chapa MD Attending physician on discharge: Geovanni Shanks Anticipated date of discharge: 04/21/18 Brief History from admission: Patient is a 68-year-old male who presented to the emergency department after having issues with lower extremity pain and wound. Patient follow-ups with Dr. Hector regarding his left lower extremity wounds. 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 Patient has had difficulty standing and to ambulate with his right lower extremity prosthesis today he was not able to do this secondary to pain in did not feel that he was able to support his weight and family attempted to eat him and therefore brought him to the emergency department with more pain. Patient was already given DALVance in the emergency department will consult infectious disease continue on vancomycin and Zosyn Has a history of MRSA,, as well as hypertension, diabetes, peripheral neuropathy , chronic pancreatitis, GERD, BPH, hyperlipidemia, coronary artery disease, history of coronary artery bypass graft, and wound infection with reconstructive surgery of the sternal wound. DS: Diagnosis - Discharge Diagnosis (1) Renal insufficiency Status: Chronic (2) Cellulitis Status: Acute (3) Prostatic hyperplasia Status: Chronic (4) Stasis ulcer of left lower extremity Status: Chronic (5) Ulcer of left ankle Status: Chronic (6) Ulcer of left lower leg Status: Chronic (7) Venous stasis dermatitis Status: Chronic DS: Medications - Discharge Medications Prescriptions: levofloxacin 250 mg PO Q48H #6 tab oxycodone-acetaminophen 1 tab PO Q6H PRN #12 tab PRN Reason: Pain DS: Summary Hospital Course: Patient is a 68-year-old male who presented to the emergency department after having issues with lower extremity pain and wound. Patient follow-ups with Dr. Hector regarding his left lower extremity wounds. 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 Patient has had difficulty standing and to ambulate with his right lower extremity prosthesis today he was not able to do this secondary to pain in did not feel that he was able to support his weight and family attempted to eat him and therefore brought him to the emergency department with more pain. Patient was already given DALVance in the emergency department will consult infectious disease continue on vancomycin and Zosyn Has a history of MRSA,, as well as hypertension, diabetes, peripheral neuropathy , chronic pancreatitis, GERD, BPH, hyperlipidemia, coronary artery disease, history of coronary artery bypass graft, and wound infection with reconstructive surgery of the sternal wound. 8-20 Patient is seen lying in bed eating lunch. He tells me that he is having some pain in his left leg however it is well controlled with current medications. Appears very frustrated. Denies chest pain or shortness of breath. No nausea vomiting or diarrhea. 8-21 Follow-up for left lower extremity wounds, generalized weakness. Patient reports continued improvement of his left lower extremity wounds with decreased swelling and erythema. Denies any fevers or chills. States he still feels generally fatigued and weak, agrees to rehab placement. He has no other medical complaints at this time including no headache, lightheadedness, chest pain, shortness of breath, or abdominal pain. He has not had a bowel movement since his arrival, but states this is normal for him to go a few days without a bowel movement. Denies any nausea or vomiting. Tolerating oral intake. 8 SEEN BY ID MEDS ADJUSTED 8 SEEN BY ID AND WOUND CARE SWITCHED TO PO LEVAQUIN CAN PROBABLY GO BACK TO SNF dc to snf today - Time Spent with Patient Total time spent providing and/or coordinating discharge services: Greater than 30 minutes - Quality: VTE Deep Vein Thrombosis/Pulmonary Embolism Present on Admission: Yes Exam Vital signs: Vital Signs 04/20/18 16:00 04/20/18 19:24 04/20/18 23:31 Temperature 97.5 F L 98.2 F 98.1 F Pulse Rate 65 70 68 Respiratory Rate 12 20 20 Blood Pressure 133/64 150/73 H 143/83 H Pulse Oximetry 95 95 93 L 04/21/18 00:26 04/21/18 01:15 04/21/18 03:14 Temperature 97.9 F Pulse Rate 60 95 H Respiratory Rate 20 20 Blood Pressure 116/57 L Pulse Oximetry 94 L 04/21/18 04:00 04/21/18 08:00 04/21/18 12:00 Temperature 97.7 F 97.8 F Pulse Rate 64 69 61 Respiratory Rate 18 18 Blood Pressure 130/63 113/62 Pulse Oximetry 93 L 93 L Intake & Output 04/20/18 04/21/18 04/21/18 18:59 06:59 18:59 Intake Total 50 / 50 Output Total 1200 / 1200 200 / 200 Balance -1200 / -1200 -150 / -150 Weight 112.2 kg Intake: IV 50 / 50 Zosyn 3.375 GM Premix 50 ML @ 50 / 50 100 mls/hr IV.SIG Q8H ALYSON Rx#: [id number] Output: Urine 1200 / 1200 200 / 200 Other: # Voids 2 Date of Last Bowel Movement 04/19/18 04/20/18 04/19/18 Narrative: GENERAL: Well-nourished, well-developed male patient in NAD. SKIN: Warm and dry. 2 LLE wounds with dressing in place, CDI (wounds not visualized today), with surrounding induration/erythema/edema that extends up the calf and into the foot. HEENT: Normocephalic. Atraumatic. Pupils equal and round. Mucous membranes pink and moist. NECK: Supple. Trachea midline. CARDIOVASCULAR: Regular rate and rhythm. No murmur appreciated. RESPIRATORY: No accessory muscle use. Clear to auscultation. Breath sounds equal bilaterally. GASTROINTESTINAL: Abdomen soft, non-tender, nondistended. Normoactive bowel sounds x4. 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 Left TMA with well- healed stump, no erythema/edema/drainage. See skin assessment above for LLE wounds. NEUROLOGICAL: Awake and alert. No obvious cranial nerve deficits. Motor grossly within normal limits. Moving all extremities spontaneously. Normal speech. PSYCHIATRIC: Appropriate mood and affect; insight and judgment normal. Results Procedures completed during hospitalization: NONE Completed studies during hospitalization: Laboratory Results WBC 12.2 th/mm3 (4.0-11.0) H 04/20/18 05:42 RBC 3.70 mil/mm3 (4.50-5.90) L 04/20/18 05:42 Hgb 10.1 gm/dL (13.0-17.0) L 04/20/18 05:42 Hct 30.9 % (39.0-51.0) L 04/20/18 05:42 MCV 83.5 fL (80.0-100.0) 04/20/18 05:42 MCH 27.2 pg (27.0-34.0) 04/20/18 05:42 MCHC 32.6 % (32.0-36.0) 04/20/18 05:42 RDW 15.8 % (11.6-17.2) 04/20/18 05:42 Plt Count 202 th/mm3 (150-450) 04/20/18 05:42 MPV 7.6 fL (7.0-11.0) 04/20/18 05:42 Neut % (Auto) 72.7 % (16.0-70.0) H 04/20/18 05:42 Lymph % (Auto) 14.7 % (9.0-44.0) 04/20/18 05:42 [place] % (Auto) 7.6 % (0.0-8.0) 04/20/18 05:42 Eos % (Auto) 4.6 % (0.0-4.0) H 04/20/18 05:42 Baso % (Auto) 0.4 % (0.0-2.0) 04/20/18 05:42 Neut # (Auto) 8.9 th/mm3 (1.8-7.7) H 04/20/18 05:42 Lymph # (Auto) 1.8 th/mm3 (1.0-4.8) 04/20/18 05:42 Dickinson # (Auto) 0.9 th/mm3 (0.0-0.9) 04/20/18 05:42 Eos # (Auto) 0.6 th/mm3 (0.0-0.4) H 04/20/18 05:42 Baso # (Auto) 0.1 th/mm3 (0.0-0.2) 04/20/18 05:42 WBC Differential . 04/20/18 05:42 Differential Comment Auto diff final 04/20/18 05:42 PT 10.8 sec (9.8-11.6) 04/18/18 06:59 INR 1.1 Ratio 04/18/18 06:59 Sodium 143 meq/L (136-145) 04/20/18 05:42 Potassium 3.8 meq/L (3.5-5.1) 04/20/18 05:42 Chloride 109 meq/L (98-107) H 04/20/18 05:42 Carbon Dioxide 26.4 meq/L (21.0-32.0) 04/20/18 05:42 Anion Gap 8 meq/L (5-15) 04/20/18 05:42 BUN 33 mg/dL (7-18) H 04/20/18 05:42 Creatinine 2.37 mg/dL (0.60-1.30) H 04/20/18 05:42 Estimated GFR 27 mL/min (>89) L 04/20/18 05:42 POC Glucose 223 mg/dl (68-110) H 04/21/18 12:10 Random Glucose 177 mg/dL (74-106) H 04/20/18 05:42 Lactic Acid 1.2 mmol/L (0.4-2.0) 04/17/18 10:53 Calcium 8.3 mg/dL (8.5-10.1) L 04/20/18 05:42 Total Bilirubin 0.6 mg/dL (0.2-1.0) 04/19/18 10:06 AST 9 U/L (15-37) L 04/19/18 10:06 ALT 10 U/L (12-78) L 04/19/18 10:06 Alkaline Phosphatase 103 U/L (45-117) 04/19/18 10:06 Total Protein 7.8 g/dL (6.4-8.2) 04/19/18 10:06 Albumin 2.5 g/dL (3.4-5.0) L 04/19/18 10:06 Urine Color Yellow (Yellw/Straw) 04/19/18 22:20 Urine Clarity Cloudy (Clear) H 04/19/18 22:20 Urine pH 5.0 (5.0-8.5) 04/19/18 22:20 Ur Specific [place] 1.017 (1.002-1.035) 04/19/18 22:20 Urine Protein 100 mg/dL (Neg-Trace) H 04/19/18 22:20 Urine Glucose (UA) Negative mg/dL (Negative) 04/19/18 22:20 Urine Ketones Trace mg/dL (Negative) 04/19/18 22:20 Urine Occult Blood Moderate (Negative) H 04/19/18 22:20 Urine Nitrate Negative (Negative) 04/19/18 22:20 Urine Bilirubin Negative (Negative) 04/19/18 22:20 Urine Urobilinogen Less than 2 mg/dL (Less than 2) 04/19/18 22:20 Ur Leukocyte Esterase Negative (Negative) 04/19/18 22:20 Urine RBC 1 /hpf (0-3) 04/19/18 22:20 Urine WBC 4 /hpf (0-5) 04/19/18 22:20 Ur Squamous Epith Cells 1 /hpf (0-5) 04/19/18 22:20 Amorphous Sediment Rare /hpf (None) H 04/19/18 22:20 Urine Bacteria Rare /hpf (None) H 04/19/18 22:20 Hyaline Casts 4 /lpf (0-3) 04/19/18 22:20 Granular Casts 7 /lpf (None) 04/19/18 22:20 Urine Mucus Few /lpf (Occasional) H 04/19/18 22:20 Micro UA Comment Culture not ind 04/19/18 22:20 Urine Culture Comments Culture not ind 04/19/18 22:20 Impressions Venous Doppler Study 04/17/18 10:10 CONCLUSION: 1. No sonographic evidence for left lower extremity DVT. Extremity Arterial Study 04/21/18 00:00 CONCLUSION: Mildly diminished left ankle index Labs on day of discharge: Labs from last 24 hours 04/21/18 04/21/18 04/21/18 12:10 09:02 03:11 POC Glucose 223 H 176 H 147 H 04/20/18 04/20/18 21:23 16:29 POC Glucose 202 H 234 H Preliminary micro results at discharge 04/17/18 10:48 Aerobic Blood Culture - Preliminary Blood - Peripheral No growth in 4 days Anaerobic Blood Culture - Preliminary No growth in 4 days 04/17/18 10:53 Aerobic Blood Culture - Preliminary Blood - Peripheral No growth in 4 days Anaerobic Blood Culture - Preliminary No growth in 4 days - Impressions ITS Impressions Venous Doppler Study 04/17/18 10:10 CONCLUSION: 1. No sonographic evidence for left lower extremity DVT. Extremity Arterial Study 04/21/18 00:00 CONCLUSION: Mildly diminished left ankle index Discharge Plan - Discharge Disposition Patient Disposition: 03 Discharge to SNF - Discharge Condition Condition: Stable - Discharge Order Discharge Orders: Discharge Order (Routine); Ordered 04/21/18 Ordered By: Geovanni Shanks - Discharge Details Anticipated Discharge Date: 04/21/18 Discharge Comment: dc to snf today - Physicians Team Primary Care Provider: Zackary Chapa Attending Provider: Geovanni Shanks Other Providers: Belinda Berman MD ; [facility] ; [facility] ; Trina Hector MD
[2018-04-21 14:56] LABS: Baso % (Auto) 0.4 % (0.0-2.0); Eos # (Auto) 0.3 th/mm3 (0.0-0.4); Eos % (Auto) 3.6 % (0.0-4.0); Hematocrit 34.7 % (39.0-51.0); Hemoglobin 11.5 gm/dL (13.0-17.0); Lymph # (Auto) 1.9 th/mm3 (1.0-4.8); Lymph % (Auto) 20.4 % (9.0-44.0); Mean Corpuscular HGB Conc 33.1 % (32.0-36.0); Mean Corpuscular Hemoglobin 27.9 pg (27.0-34.0); Mean Corpuscular Volume 84.4 fL (80.0-100.0); Mean Platelet Volume 7.5 fL (7.0-11.0); Mono # (Auto) 0.8 th/mm3 (0.0-0.9); Mono % (Auto) 8.1 % (0.0-8.0); Neut # (Auto) 6.4 th/mm3 (1.8-7.7); Neut % (Auto) 67.5 % (16.0-70.0); Platelet Count 248 th/mm3 (150-450); Red Blood Count 4.11 mil/mm3 (4.50-5.90); Red Cell Distribution Width 15.4 % (11.6-17.2); White Blood Count 9.5 th/mm3 (4.0-11.0)
[2018-04-21 15:18] LABS: Alanine Aminotransferase 13 U/L (12-78); Albumin 2.4 g/dL (3.4-5.0); Anion Gap 11 meq/L (5-15); Aspartate Aminotransferase 11 U/L (15-37); Blood Urea Nitrogen 31 mg/dL (7-18); Calcium 8.9 mg/dL (8.5-10.1); Carbon Dioxide 26.3 meq/L (21.0-32.0); Chloride 105 meq/L (98-107); Glomerular Filtration Rate 27 mL/min (>89); Glucose,Random 212 mg/dL (74-106); Magnesium 2.4 mg/dL (1.5-2.5); Phosphorus 3.2 mg/dL (2.5-4.9); Potassium 3.9 meq/L (3.5-5.1); Sodium 142 meq/L (136-145)
[2018-04-21 15:20] LABS: Alkaline Phosphatase 117 U/L (45-117); Total Protein 8.2 g/dL (6.4-8.2)
== END 2018-04-21 16:58 ==
LOC: NEPC 09:16 → NEDA 18:13 → NEPGCP 21:21 → N05 04-19 16:43
PROVIDERS: ADMIT Hospitalist; ATTEND Hospitalist